=== PATIENT | female | born 1940 | race Caucasian/White ===

== ENCOUNTER 2024-02-28 14:00 | Emergency (ER) | payer MEDICARE, SELFPAY ==
[2024-02-28 14:02] VITALS: BP 122/60
[2024-02-28 14:04] VITALS: BP 122/60
[2024-02-28 16:28] VITALS: BP 129/67
[2024-02-28 17:00] VITALS: BP 141/78
--- NOTE | 2024-02-28 18:44 | ED.GENMED ---
History of Present Illness
General
Chief Complaint: Fall
Source: patient and family (Daughter)
Exam Limitations: none
Time Seen by Provider: 02/28/24 15:09
Nursing documentation reviewed up to this point in time: agreed with
Travel History
Have you had any contact with someone who has COVID-19?: No
Do you have any symptoms of coronavirus? Fever > 100 degrees, chills, cough, shortness of breath, sore throat, loss of taste or smell, muscle aches, or headache?: No
History of Present Illness
History of Present Illness:
83-year-old female with a past medical history of dementia, asthma, hyperlipidemia who presents to the emergency room from her residential at [facility] to come in by her daughter for evaluation after a minor fall. Patient apparently lives in
apartment at [facility] with assisted living. She is able to ambulate with a walker. She says that she was sitting down in her living room and slid onto her bottom out of her recliner. She thinks that she might of hit the right side of her
head�according to the staff at [facility] this was witnessed and she did indeed hit her head. There was no loss of consciousness. She was sent to the emergency room for assessment. She initially was complaining of sacral pain in triage she
denies this to me. She denies any headache. Denies neck pain. Denies back pain. Denies chest or abdominal pain. Denies any pain in her extremities. She is not on blood thinners.
Review of Systems
Review of Systems
All Other Systems: ROS reviewed and negative except as documented in HPI and ROS
Respiratory: Denies trouble breathing
Cardiac: Denies chest pain
ABD/GI: Denies abdominal pain, nausea or vomiting
: Denies flank pain
Musculoskeletal: Denies neck pain or back pain
Neurological: Denies dizzy or headache
Phy Exam
Physical Exam
Physical Exam:
General: Awake, alert; no acute distress
Head: Normocephalic, atraumatic
Eyes: Conjunctiva normal, EOMI
Throat: Airway intact, handling secretions
Neck: Trachea midline, no cervical spine tenderness
Back: No signs of trauma to the back or flank, no tenderness in the thoracic or lumbar spine; no tenderness over the coccyx, no hematoma in the back or flank or on the buttock; no tenderness in the posterior ribs
Lungs: Clear to auscultation bilaterally, no wheezing, rales, rhonchi
Heart: Regular rate and rhythm, no murmurs, gallops, or rubs; no sternal or anterior chest wall tenderness
Abd: Soft, non distended, nontender
Neuro: Cranial nerves grossly intact, speech fluid, no gross motor or sensory deficit
Skin: no rash, no lacerations or abrasions, no bruising/ecchymosis
Extremities: Atraumatic, moves upper and lower extremities through active range of motion without discomfort including full range of motion in the hips bilaterally; good pulses in all extremities
Scores
Heart Failure Risk
Heart Failure Risk Score: Not Applicable
Heart Score for Chest Pain Patients
STEMI patient?: Not applicable
Withdrawal Assessment of Alcohol
Withdrawal Assessment Completed?: Not applicable
Course
Orders/Labs/Results
Orders:
Orders
02/28/24 15:13
CT Head W/o Iv Contrast Urgent
Comment:
Reason For Exam: fall with head strike
CR Pelvis Comp Min 3 Views Urgent
Comment:
Reason For Exam: fall onto bottom, sacral pain
CR Sacrum/coccyx Min 2 View Urgent
Comment:
Reason For Exam: fall onto buttock, sacral pain
02/28/24 17:21
Electrocardiogram (*1) Urgent
Reason for Study: Chest Pain
EKG- Treatment ONCE
02/28/24 14:03
02/28/24 14:03
Vital Signs
Initial and Last Documented VS:
Initial Vital Signs
BP
122/60
02/28/24 14:02
Last Documented Vital Signs
Temp Pulse Resp BP Pulse Ox
36.5 C 75 20 141/78 96
02/28/24 14:04 02/28/24 14:04 02/28/24 14:04 02/28/24 17:00 02/28/24 17:15
MDM/Problems Addressed
Differential Diagnosis Includes:
Pelvic fracture, sacral fracture
MDM/Problems Addressed:
83-year-old female with history as above presents for evaluation after fall onto her bottom with minor head trauma. She denies any complaints. Vital signs are normal. Sent for a CT head which was negative. Sent for x-ray of pelvis and sacrum
which were negative. She was observed in the emergency room with no issues. Will discharge back to residential. Family comfortable with this. Spoke about return precautions all questions answered.
Chronic conditions affecting care:
Dementia
*Radiology
Radiology exam reviewed: preliminary read by ED provider and radiology read reviewed
*Pulse Oximetry
Patient hypoxic: no
*EKG
Interpreted by ED Provider?: Yes
Heart Rate: 79
Rate: normal
Rhythm: sinus
[place]: left axis deviation
Interval: normal interval
QRS Pattern: left bundle branch block
Ischemia: no ischemia
*Critical Care Note
Total Time (30-74mins, 75-104mins- exclusive of procedures): Not Applicable
Data Reviewed
Source: patient, records, family and ambulance crew
ED Attending Note
-
Portions of this chart may have been created with voice recognition software.� Occasional wrong word or��sound alike� substitutions may have occurred due to the inherent limitations of voice recognition software.
Discharge Plan
Departure
Patient Disposition: Home (Routine Discharge)
Date of Disposition: 02/28/24
Time of Disposition: 17:50
Patient with high blood pressure during this ER visit?: No
Discharge Problem:
Coccyx contusion
Instructions: Preventing falls in adults
Referrals:
Raven Calvillo CRNP [Family Provider] - Call in 1-3 days for appt
Activity Restrictions/Additional Instructions:
You can take Tylenol 650 mg every 6 hours as needed for pain/soreness over the next few days.
Thank you for visiting the Emergency Department at [facility].
1. Please schedule a follow up appointment as directed. Call first thing tomorrow morning to make an appointment.
2. If indicated, please take your medications as instructed and indicated on discharge paperwork.
3. If any of your symptoms do not improve, or persist, or become more severe within 6-12 hours, please return to the emergency department for further care.
4. Please return to the emergency department if you develop a headache, neck pain/stiffness, fever greater than 100.4F, chest pain, shortness of breath, persistent nausea, vomiting, slurred speech, difficulty walking, numbness/tingling, weakness,
signs of infection or any other symptoms that are worrisome to you.
Please call [phone] if you have any questions.
Interventions
Interventions:
*Risk Screen - Suicide Last Done: 02/28/24 14:04
*General Assessment Last Done: 02/28/24 14:04
*Neglect/Abuse Screening Last Done: 02/28/24 14:04
*ED COVID-19 Vaccine History Last Done: 02/28/24 14:04
*Nursing Disposition Last Done: 02/28/24 19:23
ED-Musculoskeletal Assessment Last Done: 02/28/24 14:17
ED- Neurological Assessment Last Done: 02/28/24 14:13
ED-Skin Assessment Last Done: 02/28/24 14:13
Discharge Date and Time
Discharge Date/Time: 02/28/24 19:24
Print Language: BELARUSIAN
== END 2024-02-28 19:24 | disposition home or self-care (01) ==
LOC: EMR 14:00
PROVIDERS: EMERGENCY PHYSICIAN Emergency Medicine; FAMILY PHYSICIAN Nurse Practitioner Family
DX: S30.0XXA Contusion of lower back and pelvis, initial encounter (principal); W19.XXXA Unspecified fall, initial encounter; F03.90 Unspecified dementia, unspecified severity, without behavioral disturbance, psychotic disturbance, mood disturbance, and anxiety
CPT/HCPCS: 99285; 70450; 72190; 72220; 93005

== ENCOUNTER 2024-08-05 08:21 | Inpatient (IN) | payer MEDICARE, OTHER, SELFPAY ==
[2024-08-04] VITALS (7 sets, daily range): BP systolic 115–179; BP diastolic 48–68
--- NOTE | 2024-08-04 16:06 | ED.GENMED ---
History of Present Illness
General
Chief Complaint: Skin Surface Trauma
Source: patient, ambulance crew, detention and detention records
Exam Limitations: dementia
Time Seen by Provider: 08/04/24 15:03
Nursing documentation reviewed up to this point in time: agreed with
History of Present Illness
History of Present Illness:
83-year-old female with a past medical history of dementia, Parkinson's, hyperlipidemia, hypertension who presents to the emergency room from [facility] for evaluation after witnessed fall. Patient is somewhat limited as a historian
due to her dementia and Parkinson's. She is able to tell me that she fell down but cannot tell me exactly what happened. I spoke to the detention staff directly�they report that patient was trying to transition from wheelchair and fell to the
ground. Struck her head and sustained laceration to the nose. No loss of consciousness. She was sent to the emergency room for evaluation given her head trauma. She does have dementia at baseline and confused speech at baseline according to
staff there. She did receive some Ativan earlier for agitation. When I asked the patient if she has any complaints she says 'no.' She denies headache or neck pain, back pain, chest pain, abdominal pain, pain in her extremities. Review of her
medication shows no blood thinners.
Review of Systems
Review of Systems
Unable to obtain full review of systems at this time due to: dementia
All Other Systems: Not applicable
Phy Exam
Physical Exam
Physical Exam:
General: Awake, alert, oriented x 2
Head: Normocephalic, patient has small approximately 3 cm laceration along the bridge of the nose on the left side
Eyes: Conjunctiva normal, EOMI, pupils equal round reactive to light bilaterally
Throat: Airway intact
Neck: Trachea midline, no cervical spine tenderness
Lungs: Clear to auscultation bilaterally, no wheezing, rales, rhonchi
Heart: Regular rate and rhythm, no murmurs, gallops, or rubs appreciated; no chest wall to
Abd: Soft, non distended, nontender
Back: No signs of trauma the back or flank and no tenderness in thoracic or lumbar spine
Neuro: Follow commands and responds appropriately to questions but disoriented which is apparently her baseline
Skin: Laceration to the nasal bridge as above but no other signs of trauma
Extremities: Atraumatic, no reproducible tenderness, allows for full passive range of motion all extremities without apparent pain
Scores
Heart Failure Risk
Heart Failure Risk Score: Not Applicable
Heart Score for Chest Pain Patients
STEMI patient?: Not applicable
Withdrawal Assessment of Alcohol
Withdrawal Assessment Completed?: Not applicable
Course
Orders/Labs/Results
Orders:
Orders
08/04/24 15:05
CT Cervical Spine W/o Iv Contr Urgent
Comment:
Reason For Exam: fall with frontal headstrike
CT Head W/o Iv Contrast Urgent
Comment:
Reason For Exam: fall with frontal headstrike
08/04/24 15:35
Tetanus/Diphth/Acelpertussis [Adacel] 0.5 ml IM .ONCE ONE
08/04/24 19:09
Case Management Consult ONCE
Case Management Consult: [facility] Placement
Pt Eval And Treat Urgent
Activity Level: Ambulate
Vital Signs
Initial and Last Documented VS:
Initial Vital Signs
Temp Pulse Resp BP
37.9 C 78 18 115/48
08/04/24 14:32 08/04/24 14:32 08/04/24 14:32 08/04/24 14:32
Last Documented Vital Signs
Temp Pulse Resp BP Pulse Ox
37.9 C 62 17 179/68 92
08/04/24 14:32 08/04/24 18:30 08/04/24 18:30 08/04/24 18:00 08/04/24 18:30
Procedures
Laceration Closure
Nose:
Status of Wound: clean
Size of Wound in cm: 3
Description of Wound Edges: ragged
Preparation: cleaned with saline
Revision/Debridement: minor revision
Type of Closure: single layer closure
Skin Closure Material: other (6-0 vicryl)
Number of sutures: 3
MDM/Problems Addressed
Differential Diagnosis Includes:
Fall with laceration
MDM/Problems Addressed:
83-year-old female presents after witnessed fall with head strike. No other apparent injuries. She is not on blood thinners. She has a small laceration as above. She was sent for a CT head and cervical spine which were negative for any acute
pathology. Laceration repaired as documented procedure note.
Discussed with detention staff as well as patient's daughter who is now at the bedside. Patient currently is in assisted living at [facility] and over the past year her dementia has been worsening. The staff at detention feels that she
needs a memory care unit due to her worsening behavioral issues. Daughter has tried to place her mother in but has thus far been unsuccessful. Case management consulted to aid with placement in memory care. I did discuss potentially initiating
palliative care with patient's daughter and she is very eager to pursue this. Discussed case with hospitalist.
Chronic conditions affecting care:
Dementia, Parkinson's
Acute Exacerbation and/or Progression of Chronic Illness: HTN
*Radiology
Radiology exam reviewed: radiology read reviewed
*Pulse Oximetry
Patient hypoxic: no
*Critical Care Note
Total Time (30-74mins, 75-104mins- exclusive of procedures): Not Applicable
Data Reviewed
Source: patient, ambulance crew, detention and detention records
Patient Management
Social determinants of health affecting care: Living situation
Discussion with other providers: Hospitalist (Discussed with hospitalist), Scarfer (Discussed with palliative care) and long term staff (Discussed directly with detention staff)
Escalation/DeEscalation of care consider admission/obs:
Admission indicated for placement
ED Attending Note
-
Portions of this chart may have been created with voice recognition software.� Occasional wrong word or��sound alike� substitutions may have occurred due to the inherent limitations of voice recognition software.
Discharge Plan
Departure
Patient Disposition: Admit
Date of Disposition: 08/04/24
Time of Disposition: 18:39
Admit to doctor: Efrain
Presentation/result/management discussed w/ accepting MD/DO: Hospitalist
Patient with high blood pressure during this ER visit?: No
Discharge Problem:
Dementia, Laceration of nose
Instructions: Laceration Repair With Stitches (DC)
Referrals:
Raven Calvillo CRNP [Family Provider] - Follow up in 2-3 days
Activity Restrictions/Additional Instructions:
Patient had a laceration repair with stitches; these stitches are absorbable and do not need removal.
Interventions
Interventions:
*Risk Screen - Suicide Last Done: 08/04/24 14:32
*General Assessment Last Done: 08/04/24 14:32
*Neglect/Abuse Screening Last Done: 08/04/24 14:32
*ED COVID-19 Vaccine History Last Done: 08/04/24 14:32
ED-Skin Assessment Last Done: 08/04/24 15:03
Discharge Date and Time
Print Language: TELUGU
[2024-08-04] MEDS: ADACEL 0.5 ML IM (16:07)
--- NOTE | 2024-08-04 19:58 | HPS.HSE ---
Family Physician
-
Family Physician: Raven Calvillo
Chief Complaint
-
Witnessed fall
History of Present Illness
HPI
83F Assisted living [facility] HX dementia, Parkinson's, hyperlipidemia, hypertension for evaluation after witnessed fall.
- He recalled the fall , could not recall the details of fall.
- [place] Staff, while transition from and fell to the ground
- Struck her head and sustained laceration to the nose.
- No loss of consciousness
- She did receive some Ativan earlier for agitation.
ROS:
denies headache or neck pain, back pain, chest pain, abdominal pain, pain in her extremities. Review of her medication shows no blood thinners.
Medical History
Past Medical History
Past Medical History: Reports HTN, Hypercholesterolemia, Psychiatric (Dementia ) and Other (Parkinson dz )
Past Surgical History: Reports Other
Social History
Unable to obtain full social history at this time due to: Dementia
Family History
Family History: Not pertinent
Allergies / Home Medications
Allergies reflects when Allergies were last updated in [facility].
Home Medications with original date entered in [facility]
Allergy/Medication List:
Allergies
Allergy/AdvReac Type Severity Reaction Status Date / Time
amoxicillin Allergy Unknown Verified 02/28/24 14:02
ciprofloxacin Allergy Unknown Verified 02/28/24 14:02
doxycycline Allergy Unknown Verified 02/28/24 14:02
ibuprofen Allergy Unknown Verified 02/28/24 14:02
Brdkooy-RIW-RqZ Reductase Allergy Unknown Verified 02/28/24 14:02
Inhibitor
Sulfa (Sulfonamide Allergy Unknown Verified 02/28/24 14:02
Antibiotics)
Home Medications
acetaminophen 500 mg tablet 1,000 mg PO TID 08/04/24
albuterol sulfate 2.5 mg/3 mL (0.083 %) solution for nebulization 2.5 mg inhalation R QID 08/04/24
albuterol sulfate 90 mcg/actuation aerosol inhaler 1 puff inhalation R BID 08/04/24
brexpiprazole 2 mg tablet (Rexulti) 4 mg PO DAILY 08/04/24
cholecalciferol (vitamin D3) 25 mcg (1,000 unit) tablet 25 mcg PO DAILY 08/04/24
donepezil 5 mg tablet 10 mg PO HS 08/04/24
escitalopram oxalate 10 mg tablet 20 mg PO DAILY 08/04/24
ezetimibe 10 mg tablet 10 mg PO DAILY 08/04/24
gabapentin 300 mg capsule 300 mg PO TID 08/04/24
dctehxiq-vgx-cytixxzug-C-hyaluronic 500 mg-300 mg-400 mg-10 mg tablet 1 tab PO DAILY 08/04/24
lorazepam 0.5 mg tablet 0.5 mg PO Q8H 08/04/24
methocarbamol 500 mg tablet 500 mg PO TID 08/04/24
omeprazole 20 mg tablet,delayed release 20 mg PO DAILY 08/04/24
oxycodone-acetaminophen 5 mg-325 mg tablet (Percocet) 1 tab PO Q8HPRN PRN moderate pain 08/04/24
quetiapine 25 mg tablet 12.5 mg PO HS 08/04/24
sennosides 8.6 mg-docusate sodium 50 mg tablet (Stimulant Laxative Plus) 2 tab PO HS 08/04/24
therapeutic multivitamin 1 tab PO DAILY 08/04/24
trazodone 50 mg tablet 50 mg PO HS 08/04/24
Review of Systems
-
Constitutional: Reports No Symptoms
EENT: Reports No Symptoms
Respiratory: Reports No Symptoms
Cardiac: Reports No Symptoms
Abdomen/GI: Reports No Symptoms
: Reports No Symptoms
Musculoskeletal: Reports See HPI
Skin: Reports No Symptoms
Neurological: Reports No Symptoms
Endocrine: Reports No Symptoms
Hematologic/Lymphatic: Reports No Symptoms
Psych: Reports See HPI
Physical Exam
Vital Signs
Vital Signs
Temp Pulse Resp BP Pulse Ox
100.3 F 62 17 179/68 92
08/04/24 14:32 08/04/24 18:30 08/04/24 18:30 08/04/24 18:00 08/04/24 18:30
Physical Exam
General: No Apparent Distress
HEENT: NormoCephalic, Moist mucous membranes and Atraumatic
Respiratory: Clear
Cardiac: S1/S2 and Regular Rhythm; No Murmur or Rub
GI: Soft, Non Tender, Non Distended and Normal Bowel Sounds; No Organomegaly
Rectal: Deferred by Provider
Musculoskeletal: No Clubbing, No Cyanosis and No Edema
Skin: No Rash
Neuro: Nonfocal/grossly intact
Data Reviewed
-
Diagnostic Radiology: Report Reviewed by me
CT Scan: Report Reviewed by me
Impression/Plan
-
Data
pending admission labs
HCT: No acute intracranial abnormality note
CX spine:
No evidence of acute fracture the cervical spine.
Multilevel degenerative disc disease as described above.
No prior hospitalist admission:
ASSESSMENT & PLAN
Witnessed Fall at assisted living [place] complicated with nose laceration
Per assisted living , patient is having progressive agitation and behavioral issues
- receiving Lorazepam q8h at [place]
- So far , pending memory care unit , not yet accepted per daughter
- check UA
- PT/OT
- CRM consult
- Psych consult for progressive behavioral issue and chemical control
Low grade fever
- check UA
- check Covid Ag
Known conditions
HX dementia
Parkinson's,
hyperlipidemia
hypertension
- cont [employer] meds
DVT Px: SQH
Code: DNR per daughter
Obs MS
[2024-08-04 20:30] LABS: Hematocrit 31.1 % (37.0-47.0); Hemoglobin 10.5 g/dL (12.0-16.0); Mean Corp Hgb Conc. 33.8 g/dL (33.0-37.0); Mean Corpuscular Hgb 28.8 pg (27.0-31.0); Mean Corpuscular Volume 85.4 fL (81.0-99.0); Mean Platelet Volume 9.6 fL (7.4-10.4); Platelet Count 223 10^3/uL (130-400); Red Blood Cell Count 3.64 10^6/uL (4.20-5.40); Red Cell Dist. Width 13.9 % (11.5-14.5); White Blood Cell Count 7.1 10^3/uL (4.8-10.8)
[2024-08-04 20:42] LABS: Blood Urea Nitrogen 23 mg/dl (7-17); Calcium 9.1 mg/dl (8.4-10.2); Carbon Dioxide 25 mmol/L (22-30); Chloride 105 mmol/L (98-107); Glucose 106 mg/dl (70-99); Potassium 4.2 mmol/L (3.5-5.1); Sodium 142 mmol/L (135-145); eGFR > 60.00
[2024-08-04 22:35] LABS: Urine Albumin Trace (Neg - Trace); Urine Bilirubin Negative (Negative); Urine Character Slightly Cloudy (Clear); Urine Color Yellow; Urine Glucose Negative (Negative); Urine Ketone Negative (Negative); Urine Leukocyte Negative (Negative); Urine Nitrite Positive (Negative); Urine Occult Blood Trace (Negative); Urine Specific Gravity 1.025 (<1.030); Urine Urobilinogen Negative (Neg - 1+)
[2024-08-04 22:44] LABS: Urine Bacteria Moderate (Negative); Urine Red Blood Cell 0-2 /HPF (0-2)
[2024-08-05] VITALS (19 sets, daily range): BP systolic 95–160; BP diastolic 39–82; PULSE 78; O2SAT 99
[2024-08-05] MEDS: NEURONTIN PO (00:56)
[2024-08-05] MEDS: SEROQUEL PO (00:56)
[2024-08-05] MEDS: ARICEPT PO (00:56)
[2024-08-05] MEDS: SENOKOT-S PO (00:56)
[2024-08-05] MEDS: DESYREL PO (00:56)
[2024-08-05] MEDS: ATIVAN PO (01:04)
[2024-08-05 05:59] LABS: Hematocrit 35.1 % (37.0-47.0); Hemoglobin 11.6 g/dL (12.0-16.0); Mean Corpuscular Hgb 29.7 pg (27.0-31.0); Mean Platelet Volume 9.8 fL (7.4-10.4); Platelet Count 213 10^3/uL (130-400); Red Cell Dist. Width 13.7 % (11.5-14.5); White Blood Cell Count 7.1 10^3/uL (4.8-10.8)
[2024-08-05 06:17] LABS: COVID-19 Antigen Negative (Negative)
[2024-08-05 06:24] LABS: Blood Urea Nitrogen 19 mg/dl (7-17); Calcium 9.4 mg/dl (8.4-10.2); Carbon Dioxide 26 mmol/L (22-30); Chloride 106 mmol/L (98-107); Glucose 98 mg/dl (70-99); Potassium 4.4 mmol/L (3.5-5.1); Sodium 142 mmol/L (135-145); eGFR > 60.00
[2024-08-05] MEDS: TYLENOL 650 MG PO ×2 (07:01→14:04)
[2024-08-05] MEDS: ATIVAN 0.5 MG PO ×2 (07:01→15:03)
[2024-08-05] MEDS: HEPARIN 5000 UNITS SC ×2 (07:15→19:59)
[2024-08-05] MEDS: PROTONIX 40 MG PO (07:15)
[2024-08-05] MEDS: NEURONTIN 300 MG PO ×3 (07:15→20:59)
[2024-08-05] MEDS: SEROQUEL 12.5 MG PO ×2 (07:16→20:59)
--- NOTE | 2024-08-05 08:19 | W.PN.HOSP.TC ---
Today's Communication/Plan
-
see PN
Assessment / Plan
Assessment / Plan
83yo F with PMHx of Parkinsons, signbificant demenita (poor mentation on the baseline, HLD, COPD, chronic pain brought from [facility] after she sustained the fall while staff was transeffing her to . Found nasal laceration, CT head
and cervical spine without fractures. FOund UTI and became hypoxic over her first 24h of hospitalization
A/P:
#Fall without LOC with chronic ambulatory dysfunction
CT head and cervical spine w/o acute findings
PT/OT
Fall precautions
#UTI
Ceftriaxone and follow Ucx
No CANDICE - no concern for complicated infection at this time
#Acute hypoxic respiratory insufficiencty
#COPD, unlikely exacerbation as no wheezing on exam
#b/l LE swelling
check chest XR, proBNP
With mild hypotension - cannot give Lasix without getting addityional info from abovementioned tests
cont bronchodilators
COVID-19 neg
#Severe Dementia, unspecified
#Parkinsons disease
#Chronic back pain
#HLD
cont home meds
#Mild anemia
f/u with PCP upon d/c
DVT ppx hep
DNR/DNI as per papaerwork
I have spent at least 58min reviewing chart, test results and direct patient care
Anticipated Discharge: > 48 hours
Subjective/Interval History
-
Date of Service: August 05, 2024
Objective Data
-
Labs:
Laboratory Results
08/04/24 08/05/24
20:20 05:43
WBC 7.1 7.1
Hgb 10.5 L 11.6 L
Hct 31.1 L 35.1 L
Plt Count 223 213
Sodium 142 142
Potassium 4.2 4.4
Chloride 105 106
Carbon Dioxide 25 26
BUN 23 H 19 H
Creatinine 0.8 0.8
Glucose 106 H 98
Calcium 9.1 9.4
Vital Signs:
Vital Signs
Temp Pulse Resp BP Pulse Ox
98.1 F 85 13 118/82 95
08/05/24 07:25 08/05/24 07:00 08/05/24 07:00 08/05/24 07:00 08/05/24 07:25
Review of Systems
-
Unable to obtain full review of systems at this time due to: Dementia
History Source: Patient
Physical Exam
-
General: Comfortable
HEENT: Other (nasal laceration)
Respiratory: Negative Wheezes or Crackles
Cardiac: Regular Rhythm
GI: Soft, Nontender and Nondistended
Musculoskeletal: No Clubbing, No Cyanosis, Edema, Right Lower Extrem and Edema, Left Lower Extrem
Skin: Warm
Neuro: Awake, Alert and Oriented (not to time)
Psych: Calm
[2024-08-05] MEDS: LEXAPRO 20 MG PO (09:04)
[2024-08-05] MEDS: ZETIA 10 MG PO (09:04)
[2024-08-05] MEDS: VENTOLIN NEBULES INH ×3 (09:30→12:21)
[2024-08-05] MEDS: ROCEPHIN 1000 MG IV (10:12)
[2024-08-05] MEDS: STERILE WATER FOR INJECTION 10 ML IV (10:12)
--- NOTE | 2024-08-05 10:24 | W.CON.PAL ---
Consultation
-
Date/Time Consultation Requested: 08/04 9pm
Date/Time Consultation Performed: 08/05 11am
Requesting Provider: Bill Becerra
Performing Provider: Viviana Radha FERNANDO
Reason for Consult: Goals of Care Discussion
Primary Diagnosis: dementia
Consult Requested By: Patient's Family and Patient's Physician
Reason for Admission
Illness Course/HPI
Viviana is an 83 year old F with PMH of Parkinson's disease, dementia, HTN, HLD who presented to the ED from [facility] after a fall. +head strike with nose laceration.
In ED received sutures to laceration. CT head negative. +UTI and started on antibiotics. Per chart review, patient with progressive worsening of agitation recently at facility. Had been receiving Ativan Q8 at [facility]. Family working on trying to get her
into memory care with no luck.
Admitted for antibiotics and possible memory care placement.
Pain & Symptom Assessment
Patient Symptoms
Patient Symptoms: Agitation
Objective Data
-
Objective Data:
Vital Signs
Temp Pulse Resp BP Pulse Ox
98.1 F 85 13 118/82 95
08/05/24 07:25 08/05/24 07:00 08/05/24 07:00 08/05/24 07:00 08/05/24 07:25
Laboratory Results
08/05/24 05:43
08/05/24 05:43
Urine Color Yellow 08/04/24 22:29
Urine Clarity Slightly cloudy (Clear) 08/04/24 22:29
Urine pH 5.0 (5.0-9.0) 08/04/24 22:29
Ur Specific [place] 1.025 (<1.030) 08/04/24 22:29
Urine Ketones Negative (Negative) 08/04/24 22:29
Urine Bilirubin Negative (Negative) 08/04/24 22:29
Palliative Performance Scale
Palliative Performance Scale:
PPS Level Ambulation Activity & Evidence of Disease Self Care Intake Conscious Level
100% Full Normal Activity & Work; Full Intake Full
No Evidence of Disease
90% Full Normal Activity & Work; Full Normal Full
Some Evidence of Disease
80% Full Normal Activity with Effort Full Normal or Full
Some Evidence of Disease Reduced
70% Reduced Unable Normal Job/Work Full Normal or Full
Significant Disease Reduced
60% Reduced Unable Hobby/Housework Occasional Normal or Full or Confusion
Significant Disease Assistance Reduced
50% Mainly Sit/Lie Unable to do Any Work Considerable Normal or Full or Confusion
Extensive Disease Assistance Req'd Reduced
40% Mainly in Bed Unable to do Most Activity Mainly Assistance Normal or Full or Drowsy;
Extensive Disease Reduced +/- Confusion
30% Totally Bed Unable to do Any Activity Total Care Normal or Full or Drowsy;
Bound Extensive Disease Reduced +/- Confusion
20% Totally Bed Bound Unable to do Any Activity Total Care Minimal to Full or Drowsy;
Extensive Disease Sips +/- Confusion
10% Totally Bed Bound Unable to do Any Activity Total Care Mouth Care Drowsy or Coma;
Extensive Disease Only +/- Confusion
0%
PPS Score Level:
Palliative Performance Score Response
Palliative Performance Score Response: 50%
Physical Exam
-
General: Well Developed and Appears Chronically Ill
HEENT: Normocephalic and Other (nose laceration )
Respiratory: Clear to Auscultation
Cardiac: Regular Rhythm
Peripheral Vascular: No Edema
GI: Soft and Normal Bowel Sounds
Skin: Warm
Neuro: Awake and Alert
Psych: Confused
Assessment / Plan
-
Assessment/Plan:
83 year old F with dementia (per daughter, Lewy Body with Parkinsonian features) admitted from [facility] s/p fall with head strike and nose laceration. Worsening agitation in the last few weeks. Possible UTI.
Encounter for Palliative Care
- conversation with patient limited by dementia. Able to tell me shes in the hospital but unaware of what happened with her fall. No family present.
- spoke with patients daughter Sybil via phone. Reports that patient had a rapid decline since around August 2023, summer was walking a 5K and now is wheelchair bound with worsening behaviors. Was initially home, started to have
frequent UTIs and hospitalizations. Went to rehab after a hospital stay and then transitioned to [facility] Nov 2022. Since then has had falls, worsening functional status and worsening mentation. Daughter not happy with the [facility], feels they
dont manage her correctly. Was told its 'on her' to move her to a nursing facility and offered her no assistance with what to do. Sybil currently working with elder pot maker on a spend down and then will qualify for medicaid. She would prefer her
mother not go back to from the hospital. Discussed psych consult and hopefully medication adjustments to get a better handle on her behaviors/agitation so possibly might not need to leave [facility] if they can be better controlled.
- await psych recommendations. Would avoid ativan given her age and dementia. ?DC adriano.
- if discharged back to [facility], can follow with palliative care as an outpatient for further management. Daughter prefers SNF to LTC placement if can be accepted somewhere with working on a spend down. CM sent referrals.
Care Reviewed
Data Reviewed
Medical Tests: I reviewed
Reviewed with: Family
[2024-08-05 10:40] LABS: Lactic Acid 0.9 mmol/L (0.7-2.0)
[2024-08-05 10:50] LABS: NT-proBNP 143 pg/ml
[2024-08-05 11:12] LABS: TSH Reflex To Free T4 0.93 uIU/ml (0.47-4.68)
--- NOTE | 2024-08-05 11:31 | CM ---
Addendum entered by Muriel Samson RN 08/05/24 18:06:
Patient added [facility] to referral.
Addendum entered by Muriel Samson RN 08/05/24 14:25:
[facility] has not accepted.
CM spoke with patient's daughter who requested updated on discharge planning options. Patient daughter was very anxious and stated that he feels very confused about the discharge planning process. Patient daughter spoke with [facility] and
she felt even more confused than before and became very tearful.
CM provided emotional support. CM provided updates with [facility] interest in patient. CM sent updated psych notes to [facility].
CM will continue to follow
Original Note:
CM spoke with daughter at length regarding her placement concerns. Daughter stated that patient has been living at [facility] for about 9 months. Daughter reports that recently patient has been falling and 'yelling'. Daughter further reports that
she has been told multiple patients are complaining about patient's behavior that has only included yelling. Daughter attempted to get patient into [facility] LTC with the assistance of [facility]. She was told that no bed is available.
Daughter stated that patient has been evaluated at [facility] neurology and has been diagnosed with dementia. Daughter does not think [facility] is able to provide appropriate care for patient and she also feels they have overmedicated patient. She is
adamant that patient does not returns.
CM discussed STR to LTC options. Patient's daughter understands that patient will need LTC and is wiling to participate in financial applications as needed. She is also working with an elder law deputy commonwealth's attorney to assist with planning.
Patient's daughter reviewed Medicare.gov list. CM sent referrals to the following facilities:
[facility]
--- NOTE | 2024-08-05 11:56 | WOUNDNOTE ---
BRIDGE OF NOSE
--- NOTE | 2024-08-05 11:56 | WOUNDNOTE ---
GLUTEAL CLEFT VERTICAL
--- NOTE | 2024-08-05 12:00 | PTCARENOTE ---
Received pt this AM calling out for help. Pt oriented to self only. Confused and anxious, states she is scared and her 'butt hurts'. Pt pleasant and cooperative w/ staff and care. When left along pt calls out continuously for help. 650mg PO Tylenol
and 0.5 PO Ativan given this AM w/ good result. Pt able to eat some lunch. Daughter at bedside. Plan of care discussed. Incontinent of urine, Purewick in place.
--- NOTE | 2024-08-05 12:00 | WOUNDNOTE ---
[facility] RN note: Patient admitted with dementia, laceration of nose.
See H&P for complete history.
PMH: Alzheimer's, asthma, depression, bipolar disorder, schizophrenia.
Wound Location and type/assessment: Patient admitted with: unstageable PI in gluteal cleft/sacrum, base covered in blackwood/brown eschar. Periwound blanchable red. Heels are blanchable red. Bridge of nose remains closed.
Appetite: Good.
Pressure redistribution devices in place: Asked nurse Yaquelin to have a [facility] air bed for patient when has Rm.
Plan:For sacral ulcer, clean with saline, skin prep periwound, Santyl to eschar, moistened 2x2 gauze and silicone foam change daily. Heels, skin prep and adhesive foams applied, pillow under calves.
Will confirm orders with hospitalist and updated nurse.
Updated care plan and will follow as needed.
Note to case management of equipment requested for discharge: nursing for wound care.
Recommend follow up at wound care center upon discharge.
--- NOTE | 2024-08-05 12:18 | CS.PSYCHR ---
Consult Summary - Psychiatry
-
Pt is an 83 yo female brought in from assisted living facility after falling, hitting her head/injuring her nose. Psychiatry asked to see for episodes of screaming. Pt has hx of dementia, reportedly dx'd with Lewy Body dz by [facility]. Dtr
who is POA at bedside, providing history; pt unable to give information. Pt resting calmly, sleepy after receiving Ativan. Pt occasionally calls for dtr, stated she has to use the bathroom. Dtr reports pt has not been able to take part in
activities/services at the assisted living facility, has worsened from using a walker to wheelchair dependent. Dtr reports only recent medication change was stopping Trazodone.
Psych Hx: denied other than above
PMH: dementia, Parkinson's, hyperlipidemia, hypertension for evaluation after witnessed fall.
Psych meds: Lexapro 20 mg QD, Aricept 10 mg HS, Rexulti 4 mg QD, Seroquel 12.5 mg HS, Ativan 0.5 mg Q 8 hr
MSE: resting on stretcher, no agitation at present, mildly sedated, calm. Occasionally calls out to dtr. No overt psychosis. No restlessness or EPS
Imp: Dementia with agitation, reportedly dx'd with Lewy Body dz
Rec: would continue current psychotropic med regimen- agree with trying increasing Seroquel (lower potency antipsychotic is preferable)-ordered AM/HS
will follow
[2024-08-05] MEDS: VENTOLIN NEBULES 2.5 MG INH ×3 (12:22→19:36)
--- NOTE | 2024-08-05 16:00 | PTCARENOTE ---
Pt w/ increased agitation. c/o butt pain, trying to get up. Pt repositioned for comfort. Pt asked to take a BM, placed on bed weinstein, smear only resulted. Scheduled 0.5mg PO Ativan and PRN Tylenol given.
[2024-08-05] MEDS: DESYREL 50 MG PO (21:01)
[2024-08-05] MEDS: ARICEPT 10 MG PO (21:01)
[2024-08-05] MEDS: SENOKOT-S 2 TABLET PO (21:01)
[2024-08-06] MEDS: ATIVAN PO (01:03)
[2024-08-06 03:07] VITALS: BP 138/74
--- NOTE | 2024-08-06 05:54 | DOWNTIME ---
There was a [employer] Development Manager Downtime on 08/06/2024 from 0100 to 08/06/2024 at 0355. Downtime documentation of patient's care, including medication administrations, has been reconciled in the electronic record per guidelines. Refer to the
patient's paper chart under the miscellaneous tab to see printed paper medication records and downtime forms.
[2024-08-06] MEDS: VENTOLIN NEBULES 2.5 MG INH ×3 (07:20→19:18)
[2024-08-06 07:33] VITALS: BP 135/68
[2024-08-06] MEDS: ROCEPHIN 1000 MG IV (07:52)
[2024-08-06] MEDS: NEURONTIN 300 MG PO ×3 (07:53→20:43)
[2024-08-06] MEDS: SEROQUEL 12.5 MG PO ×2 (07:53→20:43)
[2024-08-06] MEDS: ZETIA 10 MG PO (07:53)
[2024-08-06] MEDS: STERILE WATER FOR INJECTION 10 ML IV (07:53)
[2024-08-06] MEDS: HEPARIN 5000 UNITS SC ×2 (07:55→19:34)
[2024-08-06] MEDS: PROTONIX 40 MG PO (07:55)
[2024-08-06] MEDS: LEXAPRO 20 MG PO (07:55)
[2024-08-06] MEDS: ATIVAN 0.5 MG PO ×2 (07:55→19:33)
[2024-08-06] MEDS: SANTYL OINTMENT 1 APPLIC TOPICAL (07:57)
[2024-08-06 08:17] LABS: % Basophils 0.6 % (0-2); % Eosinophils 3.4 % (0-6); % Immature Granulocytes 0.3 % (0-0.5); % Lymphocytes 30.8 % (20.5-51.1); % Monocytes 6.7 % (1.7-9.3); % Neutrophils 58.2 % (42.2-75.2); Absolute Eosinophils 0.2 10^3/uL (0-0.7); Absolute Lymphocytes 2.1 10^3/uL (1.2-3.4); Absolute Monocytes 0.5 10^3/uL (0.1-0.6); Hematocrit 34.7 % (37.0-47.0); Hemoglobin 11.4 g/dL (12.0-16.0); Mean Corp Hgb Conc. 32.9 g/dL (33.0-37.0); Mean Corpuscular Hgb 29.7 pg (27.0-31.0); Mean Corpuscular Volume 90.4 fL (81.0-99.0); Mean Platelet Volume 10.1 fL (7.4-10.4); Nucleated Red Blood Cells % 0 %; Platelet Count 222 10^3/uL (130-400); Red Blood Cell Count 3.84 10^6/uL (4.20-5.40); Red Cell Dist. Width 13.5 % (11.5-14.5); White Blood Cell Count 6.8 10^3/uL (4.8-10.8)
[2024-08-06 08:46] LABS: ALT (SGPT) 17 U/L (0-35); AST (SGOT) 23 U/L (14-36); Albumin 3.7 g/dl (3.5-5.0); Alkaline Phosphatase 55 U/L (38-126); Blood Urea Nitrogen 14 mg/dl (7-17); Calcium 9.3 mg/dl (8.4-10.2); Carbon Dioxide 30 mmol/L (22-30); Chloride 103 mmol/L (98-107); Glucose 90 mg/dl (70-99); Potassium 4.4 mmol/L (3.5-5.1); Sodium 144 mmol/L (135-145); Total Bilirubin 0.4 mg/dl (0.2-1.3); Total Protein 6.4 g/dl (6.3-8.2); eGFR > 60.00
[2024-08-06 10:59] VITALS: BP 102/46
--- NOTE | 2024-08-06 11:41 | W.PN.PAL2 ---
Today's Communication
-
Cm working on placement. Urine culture +for e coli.
Assessment / Plan
-
Assessment/Plan:
83 year old F with dementia (per daughter, Lewy Body with Parkinsonian features) admitted from [facility] s/p fall with head strike and nose laceration. Worsening agitation in the last few weeks. +UTI.
Encounter for Palliative Care
- psych note reviewed. No major changes to meds.
- would recommend avoiding ativan given her age and dementia. Avoid benzos, antihistamines in this population as much as possible.
- agree with increase in seroquel. would prefer this PRN over ativan as well.
- if discharged back to [facility], can follow with palliative care as an outpatient for further management. Daughter prefers SNF to LTC placement if can be accepted somewhere with working on a spend down. CM sent referrals.
Reason for Admission
Illness Course/HPI
Viviana is an 83 year old F with PMH of Parkinson's disease, dementia, HTN, HLD who presented to the ED from [facility] after a fall. +head strike with nose laceration.
In ED received sutures to laceration. CT head negative. +UTI and started on antibiotics. Per chart review, patient with progressive worsening of agitation recently at facility. Had been receiving Ativan Q8 at [facility]. Family working on trying to get her
into memory care with no luck.
Admitted for antibiotics and possible memory care placement.
Objective Data
-
Objective Data:
Vital Signs
Temp Pulse Resp BP Pulse Ox
98.6 F 60 18 102/46 95
08/06/24 10:59 08/06/24 11:32 08/06/24 11:32 08/06/24 10:59 08/06/24 10:59
Laboratory Results
08/06/24 07:22
08/06/24 07:22
Total Protein 6.4 g/dl (6.3-8.2) 08/06/24 07:22
Albumin 3.7 g/dl (3.5-5.0) 08/06/24 07:22
Urine Color Yellow 08/04/24 22:29
Urine Clarity Slightly cloudy (Clear) 08/04/24 22:29
Urine pH 5.0 (5.0-9.0) 08/04/24 22:29
Ur Specific [place] 1.025 (<1.030) 08/04/24 22:29
Urine Ketones Negative (Negative) 08/04/24 22:29
Urine Bilirubin Negative (Negative) 08/04/24 22:29
Palliative Performance Scale
Palliative Performance Scale:
PPS Level Ambulation Activity & Evidence of Disease Self Care Intake Conscious Level
100% Full Normal Activity & Work; Full Intake Full
No Evidence of Disease
90% Full Normal Activity & Work; Full Normal Full
Some Evidence of Disease
80% Full Normal Activity with Effort Full Normal or Full
Some Evidence of Disease Reduced
70% Reduced Unable Normal Job/Work Full Normal or Full
Significant Disease Reduced
60% Reduced Unable Hobby/Housework Occasional Normal or Full or Confusion
Significant Disease Assistance Reduced
50% Mainly Sit/Lie Unable to do Any Work Considerable Normal or Full or Confusion
Extensive Disease Assistance Req'd Reduced
40% Mainly in Bed Unable to do Most Activity Mainly Assistance Normal or Full or Drowsy;
Extensive Disease Reduced +/- Confusion
30% Totally Bed Unable to do Any Activity Total Care Normal or Full or Drowsy;
Bound Extensive Disease Reduced +/- Confusion
20% Totally Bed Bound Unable to do Any Activity Total Care Minimal to Full or Drowsy;
Extensive Disease Sips +/- Confusion
10% Totally Bed Bound Unable to do Any Activity Total Care Mouth Care Drowsy or Coma;
Extensive Disease Only +/- Confusion
0%
PPS Score Level:
Palliative Performance Scale:
PPS Level Ambulation Activity & Evidence of Disease Self Care Intake Conscious Level
100% Full Normal Activity & Work; Full Intake Full
No Evidence of Disease
90% Full Normal Activity & Work; Full Normal Full
Some Evidence of Disease
80% Full Normal Activity with Effort Full Normal or Full
Some Evidence of Disease Reduced
70% Reduced Unable Normal Job/Work Full Normal or Full
Significant Disease Reduced
60% Reduced Unable Hobby/Housework Occasional Normal or Full or Confusion
Significant Disease Assistance Reduced
50% Mainly Sit/Lie Unable to do Any Work Considerable Normal or Full or Confusion
Extensive Disease Assistance Req'd Reduced
40% Mainly in Bed Unable to do Most Activity Mainly Assistance Normal or Full or Drowsy;
Extensive Disease Reduced +/- Confusion
30% Totally Bed Unable to do Any Activity Total Care Normal or Full or Drowsy;
Bound Extensive Disease Reduced +/- Confusion
20% Totally Bed Bound Unable to do Any Activity Total Care Minimal to Full or Drowsy;
Extensive Disease Sips +/- Confusion
10% Totally Bed Bound Unable to do Any Activity Total Care Mouth Care Drowsy or Coma;
Extensive Disease Only +/- Confusion
0%
PPS Score Level:
Physical Exam
-
General: Appears Chronically Ill
HEENT: Normocephalic and Other (nose laceration )
Respiratory: Clear to Auscultation
Cardiac: Regular Rhythm
Peripheral Vascular: No Edema
GI: Soft
Neuro: Awake and Alert
Psych: Confused
Care Reviewed
Data Reviewed
Medical Tests: I reviewed
--- NOTE | 2024-08-06 11:58 | W.PN.UPDATE ---
Addendum entered and electronically signed by Ángela Lawson MD 08/06/24 12:06:
left trazodone and lexapo as is for now but would consider backing off on lexapro 20 mg given 10 mg is the usual max for seniors and also trazodone can contribute to orthostasis. . she is also on aricept . lexapro aricept and seroquel can increase
qtc which should be monitored. it is normal currently.
Original Note:
Update Note
Progress Note Update
patient seen chart reviewed. spoke with nursing and with patient's daugher ms sesay who came to visit. the patient was sleepy having received both ativan and seroquel this am. i could awaken her and she ansswered a few questions for me (some of
the incorrectly ie how many grandkids she has, the year '19...'). she was oriented to place 'hospital' and why she is here 'i fell'. spoke at length w surinder who filled me in on details of patient's life and current illness. patient was described as a
vivacious woman who was devoted to her family especially her grandkids. she could be volatile at times which worsened with the dx of lewy body dementia. d also said her mom was never the same after the of her of many many years. we
discussed medication. despite rexulti patient agitation has continued despite four mg dosing. seroquel and tid ativan were added and d fears they added to patients unsteadiness and the fall. it is also possible that eps like effects of rexulti may
have added to incoordination. at this point would dc rexulti and focus on seroquel which is likely preferred w lewy body. for now observe. have cut back ativan to bid. patient quite sedated this am. will follow
--- NOTE | 2024-08-06 13:33 | W.PN.HOSP.TC ---
Today's Communication/Plan
-
cont rocephin
US LE
Echo
Assessment / Plan
Assessment / Plan
83yo F with PMHx of Parkinsons, significant dementia (poor mentation on the baseline, HLD, COPD, chronic pain brought from [facility] after she sustained the fall while staff was transeffing her to . Found nasal laceration, CT head
and cervical spine without fractures. FOund UTI and became hypoxic over her first 24h of hospitalization
Since significant assistance needed as patient ambulatory status was declining for past months - family would like to place patient to rehab and eventually SNF
A/P:
#Fall without LOC with chronic ambulatory dysfunction
CT head and cervical spine w/o acute findings
PT/OT
Fall precautions
Nasal laceration sutured - remove sutures in 1 week
#UTI
Ceftriaxone and follow Ucx
No CANDICE - no concern for complicated infection at this time
#Acute hypoxic respiratory insufficiency - resolved
#COPD, unlikely exacerbation as no wheezing on exam
#b/l LE swelling
proBNP low, chest XR without definite pneumonia or congestion - Echo and US LE ordered
cont bronchodilators
COVID-19 neg
#Severe Dementia, Lewy-body
#Parkinson disease
#Chronic back pain
#HLD
cont home meds
Psych consult: adjusting meds, following recommendations in the progress notes.
#Mild anemia
f/u with PCP upon d/c
DVT ppx hep
DNR/DNI as per paperwork
I have spent at least 58min reviewing chart, test results and direct patient care
Anticipated Discharge: > 48 hours
Subjective/Interval History
-
Date of Service: August 06, 2024
Objective Data
-
Labs:
Laboratory Results
08/06/24
07:22
WBC 6.8
Hgb 11.4 L
Hct 34.7 L
Plt Count 222
Sodium 144
Potassium 4.4
Chloride 103
Carbon Dioxide 30
BUN 14
Creatinine 0.8
Glucose 90
Calcium 9.3
Total Bilirubin 0.4
AST 23
ALT 17
Alkaline Phosphatase 55
Vital Signs:
Vital Signs
Temp Pulse Resp BP Pulse Ox
98.6 F 60 18 102/46 95
08/06/24 10:59 08/06/24 11:32 08/06/24 11:32 08/06/24 10:59 08/06/24 10:59
I&O
08/05/24 08/06/24 08/07/24
06:59 06:59 06:59
Output Total 250 / 250
Balance -250 / -250
Review of Systems
-
History Source: Patient
All other systems: Reviewed and negative
Physical Exam
-
General: No Apparent Distress
Respiratory: Clear to Auscultation
Cardiac: Regular Rhythm
Psych: Calm
--- NOTE | 2024-08-06 14:31 | CM ---
Addendum entered by Claudia Turner 08/06/24 16:08:
CM spoke with daughter, sent an additional 13 SNF referrals, awaiting response from accepting facilities. [facility] can not accept due to patients Lewy body dementia, update to daughter.
Original Note:
CM reviewed chart, per [facility] can offer patient a bed. [facility] unable to accept due to patients behaviors. CM placed call to patients daughter, Sybil, left voicemail. CM will continue to follow for all discharge
planning needs.
Plan; SNF with transition to LTC
[2024-08-06] MEDS: VENTOLIN NEBULES INH (15:37)
[2024-08-06] MEDS: TYLENOL 650 MG PO (18:41)
[2024-08-06 19:30] VITALS: BP 133/58
[2024-08-06] MEDS: DESYREL 50 MG PO (20:43)
[2024-08-06] MEDS: ARICEPT 10 MG PO (20:44)
[2024-08-06] MEDS: SENOKOT-S 2 TABLET PO (20:44)
[2024-08-06 23:30] VITALS: BP 131/55
[2024-08-07] VITALS (7 sets, daily range): BP systolic 102–153; BP diastolic 50–70; PULSE 72
[2024-08-07] MEDS: VENTOLIN NEBULES 2.5 MG INH (07:31)
[2024-08-07] MEDS: ROCEPHIN 1000 MG IV (08:04)
[2024-08-07] MEDS: SEROQUEL 12.5 MG PO ×2 (08:05→22:04)
[2024-08-07] MEDS: HEPARIN 5000 UNITS SC ×2 (08:05→19:50)
[2024-08-07] MEDS: SANTYL OINTMENT 1 APPLIC TOPICAL (08:05)
[2024-08-07] MEDS: ZETIA 10 MG PO (08:05)
[2024-08-07] MEDS: LEXAPRO 20 MG PO (08:06)
[2024-08-07] MEDS: ATIVAN 0.5 MG PO ×2 (08:06→19:50)
[2024-08-07] MEDS: NEURONTIN 300 MG PO ×3 (08:06→22:02)
[2024-08-07] MEDS: EDECRIN 50 MG PO (08:06)
[2024-08-07] MEDS: PROTONIX 40 MG PO (08:06)
[2024-08-07] MEDS: VENTOLIN NEBULES INH (10:58)
--- NOTE | 2024-08-07 12:30 | W.PN.HOSP.TC ---
Today's Communication/Plan
-
started Ethacrynic acid
CM for rehab
Assessment / Plan
Assessment / Plan
83yo F with PMHx of Parkinsons, significant dementia (poor mentation on the baseline, HLD, COPD, chronic pain brought from [facility] after she sustained the fall while staff was transferring her to . Found nasal laceration, CT head
and cervical spine without fractures. FOund UTI and became hypoxic over her first 24h of hospitalization
Since significant assistance needed as patient ambulatory status was declining for past months - family would like to place patient to rehab and eventually SNF. Medically stable for d/c - CM to work on location
A/P:
#Fall without LOC with chronic ambulatory dysfunction
CT head and cervical spine w/o acute findings
PT/OT
Fall precautions
Nasal laceration sutured - remove sutures in 1 week
#UTI
Ceftriaxone while inpatient, cefdinir if d/c - pansensitive E.coli. Plan for 5 days total treatment of simple cystitis
No CANDICE - no concern for complicated infection at this time
#Acute hypoxic respiratory insufficiency - resolved
#COPD, unlikely exacerbation as no wheezing on exam
#b/l LE swelling 2/2 poor ambulatory capacity and resulted mild fluid overload with poor HTN control
proBNP low, chest XR without definite pneumonia or congestion, however patient with cough over past couple of days
Since allergic to Doxy and on high dose Lexapro - will avoid DOxy and Azithromycin. Cont Rocephin
US LE neg for DVT
Echo with EF 50-55% and moderate pulmonary HTN, Ethacrynic acid started (Sulfa allergy)
cont bronchodilators
COVID-19 neg
#Severe Dementia, Lewy-body
#Parkinson disease
#Chronic back pain
#HLD
cont home meds
Psych consult: adjusting meds, following recommendations in the progress notes.
#Mild anemia
f/u with PCP upon d/c
DVT ppx hep
DNR/DNI as per paperwork
I have spent at least 38min reviewing chart, test results and direct patient care
Anticipated Discharge: Within 24 hours
Subjective/Interval History
-
Date of Service: August 07, 2024
Objective Data
-
Vital Signs:
Vital Signs
Temp Pulse Resp BP Pulse Ox
97.7 F 76 18 102/50 93
08/07/24 11:21 08/07/24 11:21 08/07/24 11:21 08/07/24 11:21 08/07/24 11:21
I&O
08/06/24 08/07/24 08/08/24
06:59 06:59 06:59
Intake Total 300 / 300
Output Total 250 / 250
Balance -250 / -250 300 / 300
Review of Systems
-
History Source: Patient
All other systems: Reviewed and negative
Physical Exam
-
General: No Apparent Distress
Respiratory: Clear to Auscultation
Cardiac: Regular Rhythm
GI: Soft, Nontender and Nondistended
Skin: Warm
Neuro: Awake, Alert, Oriented and AO x 3
Psych: Calm
--- NOTE | 2024-08-07 13:00 | CM ---
Addendum entered by Claudia Turner 08/07/24 14:42:
CM spoke with daughter, additional referrals sent to [facility].
Original Note:
CM spoke with daughter, Sybil, discussed following facilities declining patient or do not have a bed: [facility], [facility], [facility], [facility] (2 year waitlist), [facility]. CM left voicemail for
[facility] to check bed availability. Per [facility], can review patient but unsure if have any LTC beds. Additional referral sent to [facility]. CM discussed patient is medically stable once facility found, [facility] only accepting
facility. Daughter touring [place] today at 3:30 p.m. CM will continue to follow for all discharge planning needs.
Plan; SNF with transition to LTC, multiple facilities declining patient.
--- NOTE | 2024-08-07 13:26 | W.PN.UPDATE ---
Addendum entered and electronically signed by Ángela Lawson MD 08/07/24 13:34:
qtc is 480
Original Note:
Update Note
Progress Note Update
patient seen chart reviewed. discussed w nursing. the patient was able to talk to me this am. she told me a little bit about her family...daughter, grandchildren as i asked her some questions about them (d had told me a lot about her famliy
yesterday). she is a little sedated perhaps from am ativan and seroquel together. trying to cut back on ativan...yesterday decreased to bid but i don't want to stop it precipitously as she has been on it for some time. would continue to try to
taper ativan. at this point patient is cooperative with care. while i was seeing her her left foot started to shake and she winced in pain. apparently a cramp. i did notice her ankles were quite stiff likely secondary to lewy body dx. i defer to
neuro and hospitalist on this.
[2024-08-07] MEDS: TYLENOL 650 MG PO ×2 (17:08→22:05)
[2024-08-07] MEDS: DESYREL 50 MG PO (22:02)
[2024-08-07] MEDS: SENOKOT-S 2 TABLET PO (22:03)
[2024-08-07] MEDS: ARICEPT 10 MG PO (22:04)
[2024-08-08] MEDS: SANTYL OINTMENT 1 APPLIC TOPICAL (06:57)
[2024-08-08 07:00] VITALS: BP 125/56
[2024-08-08] MEDS: ZETIA 10 MG PO (07:23)
[2024-08-08] MEDS: SEROQUEL 12.5 MG PO (07:23)
[2024-08-08] MEDS: ATIVAN 0.5 MG PO ×2 (07:23→20:47)
[2024-08-08] MEDS: NEURONTIN 300 MG PO ×3 (07:23→20:48)
[2024-08-08] MEDS: LEXAPRO 20 MG PO (07:23)
[2024-08-08] MEDS: EDECRIN 25 MG PO (07:24)
[2024-08-08] MEDS: PROTONIX 40 MG PO (07:24)
[2024-08-08] MEDS: TYLENOL 650 MG PO ×2 (07:24→16:37)
[2024-08-08] MEDS: ROCEPHIN 1000 MG IV (07:25)
[2024-08-08] MEDS: HEPARIN 5000 UNITS SC ×2 (07:25→20:47)
[2024-08-08] MEDS: STERILE WATER FOR INJECTION 10 ML IV (07:25)
[2024-08-08 09:18] LABS: Blood Urea Nitrogen 27 mg/dl (7-17); Calcium 9.8 mg/dl (8.4-10.2); Carbon Dioxide 30 mmol/L (22-30); Chloride 99 mmol/L (98-107); Glucose 101 mg/dl (70-99); Potassium 4.2 mmol/L (3.5-5.1); Sodium 141 mmol/L (135-145); eGFR 55.55
--- NOTE | 2024-08-08 12:02 | W.PN.UPDATE ---
Update Note
Progress Note Update
patient seen chart reviewed. spoke with nursing and with dr campo. the patient was loudly moaning this am and trying to get out of bed. she was insisting that she needed to use the bathroom but had been incontinent. it was hard to comfort her
as she was not able to express herself. she did quiet down with staff in the room. nursing tells me patient has struggled with being agitated throughout the day. have increased seroquel to 25 mg bid and reduced lexapro to 10 mg given warning re
prolonged qtc with seroquel lexapro and aricept. would recheck the ecg early next week after a few days change in the seroquel (ordered for sunday). cm with whom i spoke told me many ia have felt unable to accept patient given lewy body dx. cm
spoke with staff member at prior residence ([facility]) this am. the patient was described as occasionally yelling out while there but not physically aggressive. [facility] feels she would need to go to snf prior to returning back to them. it was my
impression talking to d that family does not want her to go back there. psych will see her on weekend.
--- NOTE | 2024-08-08 13:27 | W.PN.HOSP.TC ---
Today's Communication/Plan
-
Neuro consult
cont Ceftriaxone while inpatient, switch to Cefdinir upon d/c
Assessment / Plan
Assessment / Plan
83yo F with PMHx of Parkinsons, significant dementia (poor mentation on the baseline, HLD, COPD, chronic pain brought from [facility] after she sustained the fall while staff was transferring her to . Found nasal laceration, CT head
and cervical spine without fractures. Found UTI and became hypoxic over her first 24h of hospitalization, hypoxia resolved with Abx and Ucx grew Ecoli sensitive to cephalosporins.
Since significant assistance needed as patient ambulatory status was declining for past months - family would like to place patient to rehab and eventually SNF. Medically stable for d/c - CM to work on location, however LBD diagnosis is a roadblock
for acceptance in the facilities. Getting neurologist input
A/P:
#Fall without LOC with chronic ambulatory dysfunction
CT head and cervical spine w/o acute findings
PT/OT
Fall precautions
Nasal laceration sutured - remove sutures in 1 week
#UTI
Ceftriaxone while inpatient, cefdinir if d/c - pansensitive E.coli. Plan for 5 days total treatment of simple cystitis
No CANDICE - no concern for complicated infection at this time
#Acute hypoxic respiratory insufficiency - resolved
#COPD, unlikely exacerbation as no wheezing on exam
#b/l LE swelling 2/2 poor ambulatory capacity and resulted mild fluid overload with poor HTN control
proBNP low, chest XR without definite pneumonia or congestion, however patient with cough over past couple of days
Since allergic to Doxy and on high dose Lexapro - will avoid DOxy and Azithromycin. Cont Rocephin
US LE neg for DVT
Echo with EF 50-55% and moderate pulmonary HTN, Ethacrynic acid started (Sulfa allergy)
cont bronchodilators
COVID-19 neg
#Severe Dementia, previously diagnosed with Lewy-body
#Parkinson disease
#Chronic back pain
#HLD
cont home meds
Psych consult: adjusting meds, following recommendations in the progress notes.
Neurology consult
#Mild anemia
f/u with PCP upon d/c
DVT ppx hep
DNR/DNI as per paperwork
I have spent at least 38min reviewing chart, test results and direct patient care
Anticipated Discharge: 24 - 48 hours
Subjective/Interval History
-
Date of Service: August 08, 2024
Objective Data
-
Labs:
Laboratory Results
08/08/24
08:11
Sodium 141
Potassium 4.2
Chloride 99
Carbon Dioxide 30
BUN 27 H
Creatinine 1.0
Glucose 101 H
Calcium 9.8
Vital Signs:
Vital Signs
Temp Pulse Resp BP Pulse Ox
97.8 F 82 20 125/56 90
08/08/24 07:00 08/08/24 07:00 08/08/24 07:00 08/08/24 07:00 08/08/24 07:00
I&O
08/07/24 08/08/24 08/09/24
06:59 06:59 06:59
Intake Total 300 / 300 360 / 360
Balance 300 / 300 360 / 360
Review of Systems
-
Unable to obtain full review of systems at this time due to: Dementia
History Source: Patient
All other systems: Reviewed and negative
Physical Exam
-
General: Comfortable
Respiratory: Clear to Auscultation
Cardiac: Regular Rhythm
GI: Soft, Nontender and Nondistended
Neuro: Awake, Alert and Oriented
Psych: Calm and Apparent Dementia
--- NOTE | 2024-08-08 14:06 | CM ---
CM reviewed chart, patient remains on medsitter. Additional referrals sent to SNF. Daughter requesting neuro eval, update to Hospitalist with request. CM spoke with nurse Talbot at [facility] to obtain patients PLOF. Per [facility], patient admitted to
their facility using a walker, over the past month has been mostly using wheelchair. Nurse reports patient occasionally will yell 'help me', rarely shows aggressive behavior. CM reviewed PT notes with nurse, nurse reports if patient were to return,
they would need patient to discharge to SNF prior to returning. CM will continue to follow for all discharge planning needs.
Plan; SNF with transition to LTC when facility found, patient remains on medsitter.
[2024-08-08 15:00] VITALS: BP 122/69
--- NOTE | 2024-08-08 16:00 | CON.NEURO4 ---
Consultation - Neurology 4
-
CONSULTING PHYSICIAN: Jonah Aguilar MD (Neurology)
REFERRING PHYSICIAN: Hospitalist
DICTATED BY: Jonah Aguilar MD
DATE/TIME OF REQUEST: 08/08/2024
DATE/TIME OF CONSULTATION: 08/08/2024
Reason for Consultation: Altered mental status
History of Present Illness:
This is a 83 year old right handed female who has presented to the hospital with (chief complaint) of altered mental status. She gives a history of Parkinson's, hyperlipidemia, hypertension who was admitted from [facility] for
evaluation after witnessed fall. Patient is somewhat limited as a historian due to her Parkinson's with associated dementia. She is able to tell me that she fell down but cannot tell me how she fell .
assisted staff report that patient was trying to transition from wheelchair to bed and fell to the ground. Struck her head and sustained laceration to the nose. No loss of consciousness. She was sent to the emergency room for evaluation given
her head trauma. She does have dementia at baseline with incoherent speech at baseline according to staff there. She did receive Ativan earlier for agitation.
When patient is asked if she has any complaints she says 'no.' She denies headache or neck pain, back pain, chest pain, abdominal pain, pain in her extremities. Review of her medication shows no blood thinners.
Her facial laceration was sutured UA showed evidence for UTI and she was placed on IV antibiotics. Following admission she remains docile and is not agitated
She was seen by psychiatry and was diagnosed to have dementia with recommendation to continue Aricept Celexa Seroquel and trazodone
On my exam patient is arousable confused oriented to person place. Speech is limited but appropriate, answers all one-word. She is unable to maintain a conversation. There is no focal weakness or numbness of face or extremities
-
Past Medical History: As above
Surgical History: None reported
Family History: Noncontributory
Social History: assisted resident does not smoke or use alcohol
Allergies: See addendum
Home Medications: See addendum
Review of Symptoms: I am unable to obtain a complete review of systems�because of patient's inability to provide history.'
Vital Signs:
The patient has a
Temp Pulse Resp BP Pulse Ox
36.6 C 82 20 125/56 90
Physical Exam:
The patient is afebrile, heart sounds S1 and S2 are (regular , and chest is clear to auscultation bilaterally.
Neurologic Examination:
The patient is arousable confused and oriented x person. She) is able to follow commands intermittently and answer questions occasionally. Speech is limited with dysarthria and there is word finding issues with aphasia . On cranial nerve
assessment, pupils are 3 mm bilateral, round and reactive to light and accommodation. Visual eubanks are full. Extraocular movements are intact. Facial sensations are intact and bilaterally symmetrical,
there is no facial asymmetry. Masking of the face. Hearing is impaired bilaterally . Tongue palate and uvula are midline. Gag is present. Sternocleidomastoid strengths are full bilaterally.
Motor exam reveals increased tone with cogwheeling. Strengths is 4/5 bilateral upper and lower extremities. There is no drift or involuntary movement noted. Deep tendon reflexes are + bilateral upper and lower extremities and Babinski is absent
bilaterally.
Sensations of pain, touch, temperature and vibration are intact and asymmetrical.. Coordination is slow and she is unable to perform finger to nose bilaterally.
Romberg's and gait cannot be tested as the patient is unable to stand without assist
Lab Results: See addendum
Neuro Imaging: CT of head shows diffuse cortical atrophy mild ventriculomegaly with small vessel disease
Impression:
MsKristin) YOANDY STEEN is a 83 year old F who has presented to the hospital with (symptoms/chief complaint). Falls secondary to Parkinson's. She also has Parkinson's associated dementia. She also has worsening cognition secondary to ongoing UTI
Recommendations:
1. Start Sinemet 10/100 BID
2. Start amantadine 100 mg daily
3. Continue Aricept 10 mg at bedtime
4. Continue Lexapro 20 mg
5. Continue Seroquel 50 mg
6. Continue trazodone
7. Continue ceftriaxone. Avoid fluoroquinolones
Patient may be transferred to senior living once medically stable
Discussed patient care with: Hospitalist
Allergies
-
Allergies
Allergy/AdvReac Type Severity Reaction Status Date / Time
amoxicillin Allergy Unknown Verified 02/28/24 14:02
ciprofloxacin Allergy Unknown Verified 02/28/24 14:02
doxycycline Allergy Unknown Verified 02/28/24 14:02
ibuprofen Allergy Unknown Verified 02/28/24 14:02
Vcpwiia-KAC-SsL Reductase Allergy Unknown Verified 02/28/24 14:02
Inhibitor
Sulfa (Sulfonamide Allergy Unknown Verified 02/28/24 14:02
Antibiotics)
Vital Signs and Labs
-
Vital Signs and Labs:
Vital Signs
Temp Pulse Resp BP Pulse Ox
36.6 C 82 20 125/56 90
08/08/24 07:00 08/08/24 07:00 08/08/24 07:00 08/08/24 07:00 08/08/24 07:00
Lab Results
08/06/24 07:22
08/08/24 08:11
Sodium 141 mmol/L (135-145) 08/08/24 08:11
Potassium 4.2 mmol/L (3.5-5.1) 08/08/24 08:11
BUN 27 mg/dl (7-17) H 08/08/24 08:11
Glucose 101 mg/dl (70-99) H 08/08/24 08:11
Calcium 9.8 mg/dl (8.4-10.2) 08/08/24 08:11
Agb-Z-Pkeijvnqwac Pept 143 pg/ml 08/05/24 10:10
Medications
-
Active Medications
Generic Name Dose Route Start Last Admin
Trade Name Freq PRN Reason Stop Dose Admin
Acetaminophen 650 mg 08/04/24 23:42 08/08/24 07:24
Acetaminophen 325 Mg Tablet PO 09/01/24 23:41 650 mg
Q4HPRN PRN Administration
mild pain/MCDANIELS/temp> 100.4F
Albuterol Sulfate 2.5 mg 08/07/24 11:18
Albuterol Nebs 2.5 Mg/3 Ml Ampul INH
R Q4HPRN PRN
SOB
Bisacodyl 10 mg 08/04/24 23:42
Bisacodyl 10 Mg Rectal Suppository RECTAL 09/01/24 23:41
[id number] PRN
constipation
Ceftriaxone Sodium 1,000 mg 08/05/24 08:00 08/08/24 07:25
Ceftriaxone 1000 Mg / 10 Ml Vial IV 1,000 mg
Q24H FESTUS Administration
Collagenase 0 applic 08/06/24 08:00 08/08/24 06:57
Collagenase Ointment 2.5 Gram Jar TOPICAL 09/03/24 07:59 1 applic
DAILY FESTUS Administration
Donepezil HCl 10 mg 08/04/24 23:42 08/07/24 22:04
Donepezil Hcl 10 Mg Tablet PO 09/01/24 23:41 10 mg
HS FESTUS Administration
Ezetimibe 10 mg 08/05/24 08:00 08/08/24 07:23
Ezetimibe (Zetia) 10 Mg Tablet PO 09/02/24 07:59 10 mg
DAILY FESTUS Administration
Escitalopram Oxalate 10 mg 08/08/24 12:02
Escitalopram 10 Mg Tablet PO 09/02/24 07:59
DAILY FESTUS
Ethacrynic Acid 25 mg 08/07/24 12:44 08/08/24 07:24
Ethacrynic Acid 25 Mg Tablet PO 09/04/24 07:59 25 mg
DAILY FESTUS Administration
Gabapentin 300 mg 08/04/24 23:42 08/08/24 07:23
Gabapentin 300 Mg Capsule PO 09/01/24 23:41 300 mg
TID FESTUS Administration
Heparin Sodium 5,000 units 08/05/24 08:00 08/08/24 07:25
Heparin 5,000 Units/Ml 1 Ml Vial SC 09/02/24 07:59 5,000 units
Q12 FESTUS Administration
Lorazepam 0.5 mg 08/06/24 20:00 08/08/24 07:23
Lorazepam 0.5 Mg Tablet PO 09/03/24 19:59 0.5 mg
Q12H FESTUS Administration
Pantoprazole Sodium 40 mg 08/05/24 08:00 08/08/24 07:24
Pantoprazole 40 Mg Delayed Release Tablet PO 09/02/24 07:59 40 mg
DAILY FESTUS Administration
Polyethylene Glycol 17 grams 08/04/24 23:42
Polyethylene Glycol Powder 17 Grams Packet PO 09/01/24 23:41
DAILYPRN PRN
constipation
Quetiapine Fumarate 25 mg 08/08/24 12:01
Quetiapine 25 Mg Tablet PO 09/01/24 23:41
AMHS FESTUS
Senna/Docusate Sodium 2 tablet 08/04/24 23:42 08/07/24 22:03
Docusate W/Senna (Guillermina-Colace) Tablet PO 09/01/24 23:41 2 tablet
HS FESTUS Administration
Senna/Docusate Sodium 1 tablet 08/04/24 23:42
Docusate W/Senna (Guillermina-Colace) Tablet PO 09/01/24 23:41
BIDPRN PRN
constipation
Sodium Chloride 0 flush 08/04/24 22:00
Sodium Chloride 0.9% (Flush) Syringe IV 09/01/24 21:59
PER PROTOCOL FESTUS
Sterile Water 10 ml 08/06/24 08:00 08/08/24 07:25
Sterile Water For Injection 10 Ml Vial IV 09/03/24 07:59 10 ml
DAILY@0800 FESTUS Administration
Trazodone HCl 50 mg 08/04/24 23:42 08/07/24 22:02
Trazodone 50 Mg Tablet PO 09/01/24 23:41 50 mg
FESTUS Administration
Home Medications
�Medication �Instructions �Recorded
acetaminophen 500 mg tablet 1,000 mg PO TID 08/04/24
albuterol sulfate 2.5 mg/3 mL 2.5 mg inhalation R QID 08/04/24
(0.083 %) solution for nebulization
albuterol sulfate 90 mcg/actuation 1 puff inhalation R BID 08/04/24
aerosol inhaler
brexpiprazole 2 mg tablet (Rexulti) 4 mg PO DAILY 08/04/24
cholecalciferol (vitamin D3) 25 25 mcg PO DAILY 08/04/24
mcg (1,000 unit) tablet
donepezil 5 mg tablet 10 mg PO HS 08/04/24
escitalopram oxalate 10 mg tablet 20 mg PO DAILY 08/04/24
ezetimibe 10 mg tablet 10 mg PO DAILY 08/04/24
gabapentin 300 mg capsule 300 mg PO TID 08/04/24
qludfscr-svj-uthmbyecg-C-hyaluronic 1 tab PO DAILY 08/04/24
500 mg-300 mg-400 mg-10 mg tablet
lorazepam 0.5 mg tablet 0.5 mg PO Q8H 08/04/24
methocarbamol 500 mg tablet 500 mg PO TID 08/04/24
omeprazole 20 mg tablet,delayed 20 mg PO DAILY 08/04/24
release
oxycodone-acetaminophen 5 mg-325 1 tab PO Q8HPRN PRN moderate pain 08/04/24
mg tablet (Percocet)
quetiapine 25 mg tablet 12.5 mg PO HS 08/04/24
sennosides 8.6 mg-docusate sodium 2 tab PO HS 08/04/24
50 mg tablet (Stimulant Laxative
Plus)
therapeutic multivitamin 1 tab PO DAILY 08/04/24
trazodone 50 mg tablet 50 mg PO HS 08/04/24
[2024-08-08] MEDS: SINEMET 10-100 1 TABLET PO (20:48)
[2024-08-08] MEDS: ARICEPT 10 MG PO (20:48)
[2024-08-08] MEDS: DESYREL 50 MG PO (20:48)
[2024-08-08] MEDS: SENOKOT-S 2 TABLET PO (20:48)
[2024-08-08] MEDS: SEROQUEL 25 MG PO (20:49)
[2024-08-08 23:10] VITALS: BP 102/59
[2024-08-09] MEDS: ZETIA 10 MG PO (09:22)
[2024-08-09] MEDS: LEXAPRO 10 MG PO (09:22)
[2024-08-09] MEDS: SYMMETREL 100 MG PO (09:22)
[2024-08-09] MEDS: HEPARIN 5000 UNITS SC ×2 (09:23→19:57)
[2024-08-09] MEDS: SEROQUEL 25 MG PO ×2 (09:23→19:58)
[2024-08-09] MEDS: SINEMET 10-100 1 TABLET PO ×2 (09:23→19:58)
[2024-08-09] MEDS: SANTYL OINTMENT 1 APPLIC TOPICAL (09:23)
[2024-08-09] MEDS: EDECRIN 25 MG PO (09:23)
[2024-08-09] MEDS: NEURONTIN 300 MG PO ×3 (09:23→19:58)
[2024-08-09] MEDS: PROTONIX 40 MG PO (09:23)
[2024-08-09] MEDS: ATIVAN 0.5 MG PO ×2 (09:24→19:57)
[2024-08-09] MEDS: STERILE WATER FOR INJECTION 10 ML IV (09:24)
[2024-08-09] MEDS: ROCEPHIN 1000 MG IV (09:24)
--- NOTE | 2024-08-09 09:44 | W.PN.HOSP.TC ---
Today's Communication/Plan
-
CM for rehab
Assessment / Plan
Assessment / Plan
83yo F with PMHx of Parkinsons, parkinson dementia (poor mentation on the baseline), HLD, COPD, chronic pain brought from [facility] after she sustained the fall while staff was transferring her to . Found nasal laceration, CT head
and cervical spine without fractures. Found UTI and became hypoxic over her first 24h of hospitalization, hypoxia resolved with Abx and Ucx grew Ecoli sensitive to cephalosporins.
Since significant assistance needed as patient ambulatory status was declining for past months - family would like to place patient to rehab and eventually SNF. Medically stable for d/c - CM to work on location. Medically stable for d/c
A/P:
#Fall without LOC with chronic ambulatory dysfunction
CT head and cervical spine w/o acute findings
PT/OT
Fall precautions
Nasal laceration sutured - remove sutures around 08/14/24
#UTI
Ceftriaxone while inpatient, cefdinir if d/c - pansensitive E.coli. Plan for 5 days total treatment of simple cystitis
No CANDICE - no concern for complicated infection at this time
#Acute hypoxic respiratory insufficiency - resolved
#COPD, unlikely exacerbation as no wheezing on exam
#b/l LE swelling 2/2 poor ambulatory capacity and resulted mild fluid overload with poor HTN control
proBNP low, chest XR without definite pneumonia or congestion, however patient with cough over past couple of days
Since allergic to Doxy and on high dose Lexapro - will avoid DOxy and Azithromycin. Cont Rocephin
US LE neg for DVT
Echo with EF 50-55% and moderate pulmonary HTN, Ethacrynic acid started (Sulfa allergy)
cont bronchodilators
COVID-19 neg
#Severe Dementia, most likely Parkinson
#Parkinson disease
#Chronic back pain
#HLD
cont home meds
Psych consult: adjusting meds, following recommendations in the progress notes.
Neurology consult: started Sinemet
#Mild anemia
f/u with PCP upon d/c
DVT ppx hep
DNR/DNI as per paperwork
I have spent at least 38min reviewing chart, test results and direct patient care
Anticipated Discharge: > 48 hours
Subjective/Interval History
-
Date of Service: August 09, 2024
Objective Data
-
Vital Signs:
Vital Signs
Temp Pulse Resp BP Pulse Ox
98.6 F 74 18 102/59 93
08/08/24 23:10 08/08/24 23:10 08/08/24 23:10 08/08/24 23:10 08/08/24 23:10
I&O
08/08/24 08/09/24 08/10/24
06:59 06:59 06:59
Intake Total 360 / 360 960 / 960
Balance 360 / 360 960 / 960
Review of Systems
-
History Source: Patient
All other systems: Reviewed and negative
Physical Exam
-
General: No Apparent Distress
HEENT: Normocephalic
Cardiac: Regular Rhythm
GI: Soft, Nontender and Nondistended
Neuro: Awake, Alert and Oriented
Psych: Calm
[2024-08-09] MEDS: TYLENOL 650 MG PO ×2 (09:58→17:54)
[2024-08-09] MEDS: LIDOCAINE 4% PATCH 1 PATCH TOPICAL (12:15)
--- NOTE | 2024-08-09 12:34 | W.PN.UPDATE ---
Update Note
Progress Note Update
Psychiatry follow up. Chart reviewed and case discussed with nursing who states patient continues to yell out through the day if no one is in the room but quiet when someone is in there and no physical aggression. Seroquel was increased to 25mg BID
and lexapro decreased to 10mg daily yesterday. On exam she is repeating 'help' to me but not shouting. She admits her bottom hurts. I encouraged her to try to nap as she appears tired. She nods ok.
Plan- Continue Seroquel and Lexapro at current doses and monitor response to recent dose changes changes. Continue Aricept, trazodone, and Ativan at current doses. ECG ordered for 08/11. Plan is for SNF placement.
[2024-08-09 15:00] VITALS: BP 113/54
[2024-08-09] MEDS: ARICEPT 10 MG PO (19:58)
[2024-08-09] MEDS: SENOKOT-S 2 TABLET PO (19:58)
[2024-08-09] MEDS: DESYREL 50 MG PO (19:59)
--- NOTE | 2024-08-09 20:23 | W.PN.NEURO.1 ---
Addendum entered and electronically signed by Jonah Aguilar MD 08/13/24 20:14:
Pat confusion is multifactorial due to Metabolic Encephalopathy which is secondary to UTI and progression of Parkinson's dementia with agitation
Original Note:
Today's Communication / Plan
-
Sinemet 10/100 BID
Seroquel 25 mg BID
Lidoderm patch
Neuro Assessment/Plan
Assessment
83 yr. old lady with h/o Parkinson's, dementia who is agitated
Plan
Sinemet 10/100 TID
Seroquel 25 BID
Lidoderm patch
Subjective/Objective
Subjective Data
Date of Service: August 09, 2024
Pat continue to be confused and agitated intermittently
Objective Data
Vital Signs
Temp Pulse Resp BP Pulse Ox
37.0 C 74 16 113/54 98
08/08/24 23:10 08/09/24 15:00 08/09/24 15:00 08/09/24 15:00 08/09/24 15:00
Lab Results
08/06/24 07:22
08/08/24 08:11
Sodium 141 mmol/L (135-145) 08/08/24 08:11
Potassium 4.2 mmol/L (3.5-5.1) 08/08/24 08:11
BUN 27 mg/dl (7-17) H 08/08/24 08:11
Glucose 101 mg/dl (70-99) H 08/08/24 08:11
Calcium 9.8 mg/dl (8.4-10.2) 08/08/24 08:11
His-R-Ehtomxjwovm Pept 143 pg/ml 08/05/24 10:10
Patient Allergies
amoxicillin Allergy (Verified 02/28/24 14:02)
Unknown
ciprofloxacin Allergy (Verified 02/28/24 14:02)
Unknown
doxycycline Allergy (Verified 02/28/24 14:02)
Unknown
ibuprofen Allergy (Verified 02/28/24 14:02)
Unknown
Iapvdjb-GUW-SbD Reductase Inhibitor Allergy (Verified 02/28/24 14:02)
Unknown
Sulfa (Sulfonamide Antibiotics) Allergy (Verified 02/28/24 14:02)
Unknown
Physical Exam
-
General: Well Developed, Appears in Distress and Appears Chronically Ill
Eyes: Able to visualize OU, Unremarkable and Round OU
HEENT: Normocephalic, Atraumatic and Anicteric
Neck: Full Range of Motion
Respiratory: Clear to Auscultation
Skin: Unremarkable
Extremities: No Clubbing, No Cyanosis and Edema +1
Psych: Confused and Agitated
Extended Neurological Exam
Attention Span & Concentration: Awake, Interactive and Unable to Perform 2 Step Request
Memory: Unable to Assess
Involuntary Movement: None
Speech: Severely Reduced Output, Dysarthric and Variable
Cranial Nerve II: Left Eye: Pupillary Reactivity Unremarkable, Pupillary Size Unremarkable and Visual Milner Grossly Intact
Cranial Nerve II: Right Eye: Pupillary Reactivity Unremarkable, Pupillary Size Unremarkable and Visual Milner Grossly Intact
Cranial Nerves III, IV, : Extraocular Movement: Extraocular Movement Full in all Directions
Cranial Nerve V: Facial Sensation: Facial Sensation Unremarkable to Cold and Intact to Light Touch
Cranial Nerve VII: Facial Symmetry: Normal Facial Symmetry and Other (Masked facies)
Cranial Nerve VIII: Hearing: Unremarkable Hearing to Normal Conversational Volume
Cranial Nerves IX, X: Palate Movement: Palate Elevation Symmetric
Cranial Nerve XI: Shoulder Shrug: Unremarkable
Cranial Nerve XII: Tongue Protusion: Midline
Muscle Strength, Overall: Reduced Throughout and Reduced Bilaterally
Muscle Bulk & Tone: Bulk Unremarkable and Increased Tone (Cogwheel rigidity)
Pronator Drift: No Drift in Upper Extremities and No Drift in Lower Extremities
Deep Tendon Reflexes: Unremarkable Throughout
Cold Sensation: Unremarkable
Vibration Sensation: Unremarkable
Touch Sensation: Unremarkable
Coordination: Unable to Assess
Babinski Sign: Absent Bilaterally
Gait & Station: Up from Lying with Difficulty and Unable to Assess (Advanced Parkinsons. Bedbound)
Modified Heather Score (MRS)
-
Modified [place] Scale (mRS): Severe disability. Requires constant nursing care.
Score: 5
[2024-08-10 04:56] VITALS: BP 116/59
[2024-08-10] MEDS: LIDOCAINE 4% PATCH 1 PATCH TOPICAL (07:40)
[2024-08-10] MEDS: HEPARIN 5000 UNITS SC ×2 (07:41→20:32)
[2024-08-10] MEDS: SANTYL OINTMENT 1 APPLIC TOPICAL (07:41)
[2024-08-10] MEDS: PROTONIX 40 MG PO (07:41)
[2024-08-10] MEDS: SINEMET 10-100 1 TABLET PO ×3 (07:41→22:39)
[2024-08-10] MEDS: NEURONTIN 300 MG PO ×3 (07:41→22:37)
[2024-08-10] MEDS: SYMMETREL 100 MG PO (07:41)
[2024-08-10] MEDS: ATIVAN 0.5 MG PO ×2 (07:42→20:34)
[2024-08-10 07:44] VITALS: BP 117/48
[2024-08-10] MEDS: ZETIA 10 MG PO (07:51)
[2024-08-10] MEDS: ROCEPHIN 1000 MG IV (07:51)
[2024-08-10] MEDS: LEXAPRO 10 MG PO (07:52)
[2024-08-10] MEDS: STERILE WATER FOR INJECTION 10 ML IV (07:52)
[2024-08-10] MEDS: EDECRIN 25 MG PO (07:52)
[2024-08-10] MEDS: SEROQUEL 25 MG PO ×2 (07:52→20:34)
--- NOTE | 2024-08-10 13:03 | W.PN.HOSP.TC ---
Today's Communication/Plan
-
CM working on rehab, stable for d/c
Assessment / Plan
Assessment / Plan
83yo F with PMHx of Parkinsons, parkinson dementia (poor mentation on the baseline), HLD, COPD, chronic pain brought from [facility] after she sustained the fall while staff was transferring her to . Found nasal laceration, CT head
and cervical spine without fractures. Found UTI and became hypoxic over her first 24h of hospitalization, hypoxia resolved with Abx and Ucx grew Ecoli sensitive to cephalosporins.
Since significant assistance needed as patient ambulatory status was declining for past months - family would like to place patient to rehab and eventually SNF. Medically stable for d/c - CM to work on location. Medically stable for d/c
A/P:
#Fall without LOC with chronic ambulatory dysfunction
CT head and cervical spine w/o acute findings
PT/OT
Fall precautions
Nasal laceration sutured - remove sutures around 08/14/24
#UTI
Ceftriaxone completed 5 days
No CANDICE - no concern for complicated infection at this time
#Acute hypoxic respiratory insufficiency - resolved
#COPD, unlikely exacerbation as no wheezing on exam
#b/l LE swelling 2/2 poor ambulatory capacity and resulted mild fluid overload with poor HTN control
proBNP low, chest XR without definite pneumonia or congestion, however patient with cough over past couple of days
Since allergic to Doxy and on high dose Lexapro - will avoid DOxy and Azithromycin. Cont Rocephin
US LE neg for DVT
Echo with EF 50-55% and moderate pulmonary HTN, Ethacrynic acid started (Sulfa allergy)
cont bronchodilators
COVID-19 neg
#Severe Dementia, most likely Parkinson
#Parkinson disease
#Chronic back pain
#HLD
cont home meds
Psych consult: adjusting meds, following recommendations in the progress notes.
Neurology consult: started Sinemet
#Mild anemia
f/u with PCP upon d/c
DVT ppx hep
DNR/DNI as per paperwork
I have spent at least 38min reviewing chart, test results and direct patient care
Anticipated Discharge: 24 - 48 hours
Subjective/Interval History
-
Date of Service: August 10, 2024
Objective Data
-
Vital Signs:
Vital Signs
Temp Pulse Resp BP Pulse Ox
97.7 F 78 20 117/48 94
08/10/24 07:44 08/10/24 07:44 08/10/24 07:44 08/10/24 07:44 08/10/24 07:44
I&O
08/09/24 08/10/24 08/11/24
06:59 06:59 06:59
Intake Total 960 / 960 960 / 960 120 / 120
Balance 960 / 960 960 / 960 120 / 120
Review of Systems
-
Unable to obtain full review of systems at this time due to: Dementia
History Source: Patient
All other systems: Reviewed and negative
Physical Exam
-
General: No Apparent Distress
HEENT: Normocephalic
GI: Soft, Nontender and Nondistended
Psych: Agitated and Apparent Dementia
--- NOTE | 2024-08-10 14:22 | CM ---
Patient with Hx Parkinsons Dementia with Dx Fall with chronic ambulatory dysfunction, UTI. Seen by Psych: Dementia with agitation, reportedly dx'd with Lewy Body dz. Room air. Receiving IV Abx, Seroquel. Medsitter.
Request from Dr Jaimes for d/c planning to SNF.
Spoke with patient's nurse Belinda; patient had still been attempting to climb out of bed overnight so not comfortable stopping Medsitter today. Perhaps Medsitter can be stopped tomorrow.
23 SNF referrals in [facility] reviewed; [facility] expressed interest. [facility] will check on Sunday for available bed.
Spoke with [facility] including [facility]; they are able to accept once Medsitter is off 24 hrs.
Spoke with daughter Sybil for 29 minutes:
reviewed all responding SNFs. Daughter unsure she will agree with [facility] as her mother would have a few roomates, due to concern with patient's yelling at times. Discussed other SNF options- suggested [facility] due to private rooms.
Daughter would like to focus on [facility], [facility], [facility]. Daughter relays patient has about $[phone] in savings and then would need to apply for MA for LTC.
Suggest strategy wait until patient off Medsitter with no agitated behaviors then reach out to SNFs for reconsideration.
Patient will need updated PT/OT notes.
Plan follow up with daughter's preferred SNFs once Medsitter d/c;ed and patient has no agitated behaviors.
[2024-08-10 17:04] VITALS: BP 112/51
[2024-08-10 21:04] LABS: Blood Urea Nitrogen 28 mg/dl (7-17); Calcium 9.6 mg/dl (8.4-10.2); Carbon Dioxide 31 mmol/L (22-30); Chloride 98 mmol/L (98-107); Glucose 116 mg/dl (70-99); Potassium 4.1 mmol/L (3.5-5.1); Sodium 140 mmol/L (135-145); eGFR 55.55
[2024-08-10] MEDS: SENOKOT-S 2 TABLET PO (22:37)
[2024-08-10] MEDS: DESYREL 50 MG PO (22:37)
[2024-08-10] MEDS: ARICEPT 10 MG PO (22:37)
[2024-08-10] MEDS: TYLENOL 650 MG PO (22:47)
[2024-08-10 22:52] VITALS: BP 100/48
[2024-08-11] MEDS: SANTYL OINTMENT 1 APPLIC TOPICAL (06:04)
[2024-08-11] MEDS: ZETIA 10 MG PO (08:38)
[2024-08-11] MEDS: ATIVAN 0.5 MG PO ×2 (08:38→20:08)
[2024-08-11] MEDS: SYMMETREL 100 MG PO (08:38)
[2024-08-11] MEDS: SINEMET 10-100 1 TABLET PO ×3 (08:38→22:23)
[2024-08-11] MEDS: HEPARIN 5000 UNITS SC ×2 (08:38→20:09)
[2024-08-11] MEDS: NEURONTIN 300 MG PO ×3 (08:38→22:22)
[2024-08-11] MEDS: LIDOCAINE 4% PATCH 1 PATCH TOPICAL (08:39)
[2024-08-11] MEDS: LEXAPRO 10 MG PO (08:39)
[2024-08-11] MEDS: EDECRIN 25 MG PO (08:39)
[2024-08-11] MEDS: SEROQUEL 25 MG PO ×3 (08:39→20:08)
[2024-08-11] MEDS: PROTONIX 40 MG PO (08:39)
[2024-08-11] MEDS: STERILE WATER FOR INJECTION IV (08:40)
[2024-08-11] MEDS: TYLENOL 650 MG PO (08:41)
[2024-08-11 08:47] VITALS: BP 102/54
--- NOTE | 2024-08-11 10:29 | CM ---
Addendum entered by Destiny Mcneal RN 08/11/24 11:08:
CM spoke with the patient's daughter via telephone for approximately 25 minutes reviewing the patient's medications and facilities unable/unwilling to accept. Need to have PT evaluate patient for new/updated referrals to be sent. CM discussed with
the patient's daughter the facilities who do not accept MA and some that have a waiting list for stable attendant. Daughter interested in additional referrals to [facility], and [facility] once updated PT
notes are available.
Original Note:
Reviewed the chart notes and spoke with the patient's RN at the bedside. Medsitter continues. RN to attempt to remove today. Only facility interested in the patient at this time is [facility]. Left message for daughter to discuss
other facilities. CM continues to be available to patient/family and is monitoring medical plan for needs at discharge.
Plan: Discharge to SNF once bed found and patient off Medsitter for 24 hrs.
--- NOTE | 2024-08-11 10:46 | PN.CDI ---
CDI
- -
CDI:
Physician Documentation Request
Admit Date: 08/05/24 08:21
Dear Doctor,
Please review the following and provide your response in the progress notes.
Clinical Indicators:
Pt admitted with Lewy Body dementia and UTI
Patient care note 08/05 @ 1200, ' Received pt this AM calling out for help. Pt oriented to self only. Confused and anxious...When left along pt calls out continuously for help.....0.5 PO Ativan given this AM w/ good result....'
[facility] care note 08/05 @ 1600, ' Pt w/ increased agitation.... Scheduled 0.5mg PO Ativan ....'
Neurology consult,' ...dementia with recommendation to continue Aricept Celexa Seroquel and trazodoneOn my exam patient is arousable confused oriented to person place. Speech is limited but appropriate, answers all one-word. She is unable to
maintain a conversation. She also has Parkinson's associated dementia. She also has worsening cognition secondary to ongoing UTI....'
Based on the above, could you clarify in the Progress Notes and Discharge Summary which, if any of the following, is the most likely etiology of the confusion/altered mental status.
Multifactorial due to Metabolic Encephalopathy with UTI/ Worsening Progression of Parkinson's dementia with agitation
Worsening progression of Parkinson's dementia only
Other
Use of terms such as suspected, likely, concern for, or probable (associated with a specific diagnosis that is being evaluated, monitored, or treated as if it exists) are acceptable and can be coded in the inpatient setting, when documented at the
time of discharge.
Thank you,
Sonja Jay RN
CDI Specialist
[facility]
Please use your independent medical judgment in providing your response.
--- NOTE | 2024-08-11 11:24 | PTCARENOTE ---
Med-sitter dc'd. Bed alarm in place for pt safety. Pt c/o 'butt' pain, 650mg PO Tylenol given, w/ little effect. Pt repositioned frequently to be turned off sacrum. Pt calls out frequently 'hello' and 'help'. Emotional support provided. Pt oriented
to self only, limited conversation w/ staff, cooperative w/ care. Discussed w/ Palliative and Dr Daniel.
--- NOTE | 2024-08-11 11:40 | W.PN.PAL2 ---
Today's Communication
-
Palliative Care Follow Up Visit. Patient seen in bed, complaining of back pain. Has sacral wound. Currently with medsitter, but agitation improving. Looking into SNF placement.
Recommended changing tylenol to 1000mg scheduled q8 hours to help improve pain and any pain related agitation. Discussed with attending.
Agitation medications managed by psychiatry.
Assessment / Plan
-
Assessment/Plan:
Agitation mangement per psychiatry, improving
Recommend increasing tylenol to 1000mg q8 h scheduled. Off load/turn to reduce pain/pressure to sacral wound.
patient unable to tolerate ibuprofen per chart review.
Awaiting placement
Reason for Admission
Illness Course/HPI
Viviana is an 83 year old F with PMH of Parkinson's disease, dementia, HTN, HLD who presented to the ED from [facility] after a fall. +head strike with nose laceration.
Goals of Care Discussion
-
Patient able to participate in discussion at time of visit: No
Pain & Symptom Assessment
Patient Symptoms
Patient Symptoms: Pain (patient unable to quantify, reports bad back pain)
Objective Data
-
Objective Data:
Vital Signs
Temp Pulse Resp BP Pulse Ox
97.6 F 63 16 102/54 94
08/11/24 08:47 08/11/24 08:47 08/11/24 08:47 08/11/24 08:47 08/11/24 08:47
Laboratory Results
08/10/24 16:51
08/10/24 20:36
Total Protein 6.4 g/dl (6.3-8.2) 08/06/24 07:22
Albumin 3.7 g/dl (3.5-5.0) 08/06/24 07:22
Urine Color Yellow 08/04/24 22:29
Urine Clarity Slightly cloudy (Clear) 08/04/24 22:29
Urine pH 5.0 (5.0-9.0) 08/04/24 22:29
Ur Specific [place] 1.025 (<1.030) 08/04/24 22:29
Urine Ketones Negative (Negative) 08/04/24 22:29
Urine Bilirubin Negative (Negative) 08/04/24 22:29
Palliative Performance Scale
Palliative Performance Scale:
PPS Level Ambulation Activity & Evidence of Disease Self Care Intake Conscious Level
100% Full Normal Activity & Work; Full Intake Full
No Evidence of Disease
90% Full Normal Activity & Work; Full Normal Full
Some Evidence of Disease
80% Full Normal Activity with Effort Full Normal or Full
Some Evidence of Disease Reduced
70% Reduced Unable Normal Job/Work Full Normal or Full
Significant Disease Reduced
60% Reduced Unable Hobby/Housework Occasional Normal or Full or Confusion
Significant Disease Assistance Reduced
50% Mainly Sit/Lie Unable to do Any Work Considerable Normal or Full or Confusion
Extensive Disease Assistance Req'd Reduced
40% Mainly in Bed Unable to do Most Activity Mainly Assistance Normal or Full or Drowsy;
Extensive Disease Reduced +/- Confusion
30% Totally Bed Unable to do Any Activity Total Care Normal or Full or Drowsy;
Bound Extensive Disease Reduced +/- Confusion
20% Totally Bed Bound Unable to do Any Activity Total Care Minimal to Full or Drowsy;
Extensive Disease Sips +/- Confusion
10% Totally Bed Bound Unable to do Any Activity Total Care Mouth Care Drowsy or Coma;
Extensive Disease Only +/- Confusion
0%
PPS Score Level:
Palliative Performance Score Response
Palliative Performance Score Response: 40%
Physical Exam
-
General: Well Developed and Well Nourished
HEENT: Moist Mucous Membranes
Neuro: Awake and Alert
Psych: Calm
[2024-08-11] MEDS: TYLENOL 1000 MG PO ×2 (12:06→15:18)
[2024-08-11] MEDS: ULTRAM 25 MG PO (13:14)
[2024-08-11 14:20] VITALS: BP 85/60; BP 97/55
--- NOTE | 2024-08-11 14:29 | W.PN.UPDATE ---
Update Note
Progress Note Update
Pt seen, sitting up in bed with tray table, eating lunch. Pt alert, calm, cooperative. No agitation evident this afternoon. No agitation noted on current psych med regimen, Seroquel increased to BID since admission.
Imp: Dementia with agitation, improved; reportedly dx'd with Lewy Body dz
Rec: continue current psychotropic medications
Psychiatry will sign off. Please reconsult for any new/immediate concerns
[2024-08-11 15:00] VITALS: BP 105/45
--- NOTE | 2024-08-11 15:00 | PTCARENOTE ---
notified that pt continues to yell out and c/o butt and back pain. Ultram 25mg PO added, however pt continues to yell out for help and c/o pain. Pt's behavior escalating, attempting to climb out of bed. added 2mg IV Haldol. EKG obtained. Will
monitor closely.
--- NOTE | 2024-08-11 16:09 | W.PN.HOSP.TC ---
Today's Communication/Plan
-
tramadol
dc ready - cm aware - pending placement
Assessment / Plan
Assessment / Plan
83yo F with PMHx of Parkinsons, parkinson dementia (poor mentation on the baseline), HLD, COPD, chronic pain brought from [facility] after she sustained the fall while staff was transferring her to . Found nasal laceration, CT head
and cervical spine without fractures. Found UTI and became hypoxic over her first 24h of hospitalization, hypoxia resolved with Abx and Ucx grew Ecoli sensitive to cephalosporins.
Since significant assistance needed as patient ambulatory status was declining for past months - family would like to place patient to rehab and eventually SNF. Medically stable for d/c - CM to work on location. Medically stable for d/c
A/P:
#Fall without LOC with chronic ambulatory dysfunction
CT head and cervical spine w/o acute findings
PT/OT
Fall precautions
Nasal laceration sutured - remove sutures around 08/14/24
#UTI
Ceftriaxone completed 5 days
No CANDICE - no concern for complicated infection at this time
#Acute hypoxic respiratory insufficiency - resolved
#COPD, unlikely exacerbation as no wheezing on exam
#b/l LE swelling 2/2 poor ambulatory capacity and resulted mild fluid overload with poor HTN control
proBNP low, chest XR without definite pneumonia or congestion, however patient with cough over past couple of days
Since allergic to Doxy and on high dose Lexapro - will avoid DOxy and Azithromycin. Cont Rocephin
US LE neg for DVT
Echo with EF 50-55% and moderate pulmonary HTN, Ethacrynic acid started (Sulfa allergy)
cont bronchodilators
COVID-19 neg
#Severe Dementia, most likely Parkinson
#Parkinson disease
#Chronic back pain
#HLD
cont home meds
Tylenol standing
Tramadol PRN
Psych consult: adjusting meds, following recommendations in the progress notes.
Neurology consult: started Sinemet
#Mild anemia
f/u with PCP upon d/c
DVT ppx hep
DNR/DNI as per paperwork
Anticipated Discharge: Within 24 hours
Subjective/Interval History
-
Date of Service: August 11, 2024
pain - started tramadol
Objective Data
-
Vital Signs:
Vital Signs
Temp Pulse Resp BP Pulse Ox
97.6 F 63 16 102/54 94
08/11/24 08:47 08/11/24 08:47 08/11/24 08:47 08/11/24 08:47 08/11/24 13:22
I&O
08/10/24 08/11/24 08/12/24
06:59 06:59 06:59
Intake Total 960 / 960 1200 / 1200
Balance 960 / 960 1200 / 1200
Review of Systems
-
History Source: Patient
All other systems: Not reviewed unless documented
Data Reviewed
-
Diagnostic Radiology: Image personally visualized and interpreted
CT Scan: Image personally visualized and interpreted and Report Reviewed by me
Labs: Labs Reviewed by me
[2024-08-11] MEDS: HALDOL 2 MG IV (16:36)
[2024-08-11] MEDS: ARICEPT 10 MG PO (22:23)
[2024-08-11] MEDS: DESYREL 50 MG PO (22:23)
[2024-08-11] MEDS: SENOKOT-S 2 TABLET PO (22:23)
[2024-08-11 23:12] VITALS: BP 115/54
[2024-08-12] MEDS: TYLENOL 1000 MG PO ×4 (00:03→23:00)
[2024-08-12] MEDS: ULTRAM 25 MG PO ×2 (01:19→12:16)
[2024-08-12 07:20] VITALS: BP 112/55
[2024-08-12 08:14] LABS: Blood Urea Nitrogen 23 mg/dl (7-17); Calcium 9.8 mg/dl (8.4-10.2); Carbon Dioxide 32 mmol/L (22-30); Chloride 97 mmol/L (98-107); Glucose 91 mg/dl (70-99); Potassium 4.3 mmol/L (3.5-5.1); Sodium 138 mmol/L (135-145); eGFR 55.55
--- NOTE | 2024-08-12 10:14 | CM ---
Addendum entered by Claudia Turner 08/12/24 12:46:
CM spoke with daughter, Sybil, [facility] able to accept, daughter scheduled for 4:00 p.m. tour. Per [facility] also able to offer bed, [facility] reviewing clinicals. Daughter inquiring about [facility], [facility]
placed call to facility, facility does not offer STR. Per [facility], can offer patient a bed and transition to semi private when room available. Daughter concerned with patient sharing a room with three other patients.
Plan; touring [facility] 4:00 p.m. for STR with transition to LTC
Original Note:
CM sent additional referrals to [facility], [facility], and [facility]. Per [facility], no LTC beds available. [facility] reports no beds available. VM left for [facility]. Per [facility], would need to see financial
application, no LTC beds and patient would be on waitlist. Updated referrals sent to SNF as patient no longer on medsitter as of yesterday. CM will continue to follow for all discharge planning needs. CM placed call to daughter, left VM.
Plan; SNF with transition to LTC once bed found.
[2024-08-12] MEDS: ZETIA 10 MG PO (10:31)
[2024-08-12] MEDS: ATIVAN 0.5 MG PO ×2 (10:31→20:21)
[2024-08-12] MEDS: SYMMETREL 100 MG PO (10:31)
[2024-08-12] MEDS: SEROQUEL 25 MG PO ×2 (10:31→20:21)
[2024-08-12] MEDS: PROTONIX 40 MG PO (10:32)
[2024-08-12] MEDS: NEURONTIN 300 MG PO ×3 (10:32→21:38)
[2024-08-12] MEDS: LEXAPRO 10 MG PO (10:32)
[2024-08-12] MEDS: EDECRIN 25 MG PO (10:32)
[2024-08-12] MEDS: HEPARIN 5000 UNITS SC ×2 (10:33→20:22)
[2024-08-12] MEDS: SANTYL OINTMENT 1 APPLIC TOPICAL (10:33)
[2024-08-12] MEDS: LIDOCAINE 4% PATCH 1 PATCH TOPICAL (10:33)
[2024-08-12] MEDS: SINEMET 10-100 1 TABLET PO ×3 (10:33→21:38)
[2024-08-12] MEDS: STERILE WATER FOR INJECTION IV (10:34)
--- NOTE | 2024-08-12 14:00 | W.PN.HOSP.TC ---
Today's Communication/Plan
-
dc ready - cm aware - pending placement
Assessment / Plan
Assessment / Plan
83yo F with PMHx of Parkinsons, parkinson dementia (poor mentation on the baseline), HLD, COPD, chronic pain [facility] after she sustained the fall while staff was transferring her to . Found nasal laceration, CT head
and cervical spine without fractures. Found UTI and became hypoxic over her first 24h of hospitalization, hypoxia resolved with Abx and Ucx grew Ecoli sensitive to cephalosporins.
Since significant assistance needed as patient ambulatory status was declining for past months - family would like to place patient to rehab and eventually SNF. Medically stable for d/c - CM to work on location. Medically stable for d/c
A/P:
#Fall without LOC with chronic ambulatory dysfunction
CT head and cervical spine w/o acute findings
PT/OT
Fall precautions
Nasal laceration sutured - remove sutures around 08/14/24
#UTI
Ceftriaxone completed 5 days
No CANDICE - no concern for complicated infection at this time
#Acute hypoxic respiratory insufficiency - resolved
#COPD, unlikely exacerbation as no wheezing on exam
#b/l LE swelling 2/2 poor ambulatory capacity and resulted mild fluid overload with poor HTN control
proBNP low, chest XR without definite pneumonia or congestion, however patient with cough over past couple of days
Since allergic to Doxy and on high dose Lexapro - will avoid DOxy and Azithromycin. Cont Rocephin
US LE neg for DVT
Echo with EF 50-55% and moderate pulmonary HTN, Ethacrynic acid started (Sulfa allergy)
cont bronchodilators
COVID-19 neg
#Severe Dementia, most likely Parkinson
#Parkinson disease
#Chronic back pain
#HLD
cont home meds
Tylenol standing
Tramadol PRN
Psych consult: adjusting meds, following recommendations in the progress notes.
Neurology consult: started Sinemet
#Mild anemia
f/u with PCP upon d/c
DVT ppx hep
DNR/DNI as per paperwork
Anticipated Discharge: Within 24 hours
Subjective/Interval History
-
Date of Service: August 12, 2024
No events overnight
Objective Data
-
Labs:
Laboratory Results
08/12/24
06:55
Sodium 138
Potassium 4.3
Chloride 97 L
Carbon Dioxide 32 H
BUN 23 H
Creatinine 1.0
Glucose 91
Calcium 9.8
Vital Signs:
Vital Signs
Temp Pulse Resp BP Pulse Ox
97.8 F 57 18 112/55 98
08/11/24 23:12 08/12/24 10:32 08/12/24 07:20 08/12/24 10:32 08/12/24 07:20
I&O
08/11/24 08/12/24 08/13/24
06:59 06:59 06:59
Intake Total 1200 / 1200 840 / 840
Balance 1200 / 1200 840 / 840
Review of Systems
-
History Source: Patient
All other systems: Not reviewed unless documented
Physical Exam
-
General: No Apparent Distress
HEENT: Normocephalic
GI: Soft, Nontender and Nondistended
Psych: Agitated and Apparent Dementia
Data Reviewed
-
Diagnostic Radiology: Image personally visualized and interpreted
CT Scan: Image personally visualized and interpreted and Report Reviewed by me
Labs: Labs Reviewed by me
[2024-08-12 15:38] VITALS: BP 90/39
[2024-08-12 16:02] VITALS: BP 90/41
[2024-08-12] MEDS: ARICEPT 10 MG PO (21:38)
[2024-08-12] MEDS: DESYREL 50 MG PO (21:45)
[2024-08-12] MEDS: SENOKOT-S 2 TABLET PO (21:46)
[2024-08-12 23:34] VITALS: BP 103/53
[2024-08-13 07:15] VITALS: BP 131/65
[2024-08-13 08:47] LABS: Hematocrit 39.9 % (37.0-47.0); Hemoglobin 12.9 g/dL (12.0-16.0); Mean Corp Hgb Conc. 32.3 g/dL (33.0-37.0); Mean Corpuscular Hgb 28.5 pg (27.0-31.0); Mean Corpuscular Volume 88.1 fL (81.0-99.0); Mean Platelet Volume 10.1 fL (7.4-10.4); Platelet Count 217 10^3/uL (130-400); Red Blood Cell Count 4.53 10^6/uL (4.20-5.40); Red Cell Dist. Width 13.8 % (11.5-14.5); White Blood Cell Count 5.1 10^3/uL (4.8-10.8)
[2024-08-13 09:16] LABS: Blood Urea Nitrogen 25 mg/dl (7-17); Calcium 9.6 mg/dl (8.4-10.2); Carbon Dioxide 32 mmol/L (22-30); Chloride 98 mmol/L (98-107); Glucose 94 mg/dl (70-99); Potassium 4.4 mmol/L (3.5-5.1); Sodium 140 mmol/L (135-145); eGFR 55.55
--- NOTE | 2024-08-13 10:08 | WOUNDNOTE ---
ROSALVA RN NOTE: Followed up today, nurse Xavi assisted and PCT/nursing students. Patient being washed up and new Purwick being applied, incontinent of urine. Sacral/gluteal cleft ulcer suspect stage 3 or deeper. Wound larger as expected with Santyl
use, can see some pink but mostly slough at base. Periwound intact, Santyl, adaptic,2x2 gauze and silicone foam applied. Recommend continue with Santyl dressing daily and offloading. Currently on air overlay with adequate inflation, turning schedule
enforced. Instructed PCT and nursing students importance of offloading and turning for PI healing. Heels intact and adhesive foams changed, pillow in use under calves. Nurse Tori reports good appetite. Air chair cushion in . Will follow as needed
and recommend air mattress at [place], will update discharge instructions.
[2024-08-13] MEDS: NEURONTIN 300 MG PO ×3 (10:22→21:18)
[2024-08-13] MEDS: SINEMET 10-100 1 TABLET PO ×3 (10:22→21:18)
[2024-08-13] MEDS: EDECRIN 25 MG PO (10:22)
[2024-08-13] MEDS: SYMMETREL 100 MG PO (10:22)
[2024-08-13] MEDS: ZETIA 10 MG PO (10:22)
[2024-08-13] MEDS: PROTONIX 40 MG PO (10:22)
[2024-08-13] MEDS: TYLENOL 1000 MG PO ×3 (10:22→23:21)
[2024-08-13] MEDS: ATIVAN 0.5 MG PO ×2 (10:23→20:21)
[2024-08-13] MEDS: SEROQUEL 25 MG PO ×3 (10:23→22:07)
[2024-08-13] MEDS: HEPARIN 5000 UNITS SC ×2 (10:23→20:21)
[2024-08-13] MEDS: LEXAPRO 10 MG PO (10:24)
[2024-08-13] MEDS: LIDOCAINE 4% PATCH 1 PATCH TOPICAL (10:27)
[2024-08-13] MEDS: SANTYL OINTMENT 1 APPLIC TOPICAL (10:27)
--- NOTE | 2024-08-13 10:33 | CM ---
Addendum entered by Claudia Turner 08/13/24 14:37:
CM spoke with patients daughter via telephone, daughter inquiring if we are 'kicking her out' regarding patient. CM reports patient is not being kicked out. Daughter confirmed she is touring [facility] and [facility] again, with her , daughter
requesting additional referral to [facility], referral placed in [facility]. CM reports [facility] and [facility] unable to accept, awaiting to hear from [facility], [facility], and [facility]. Patients daughter reports she feels extreme
pressure from the Hospital to discharge patient, reports several times that 'no one cares' about patient, the Hospital is a business, etc. Daughter reports she works for [employer] and will ensure [facility] is aware of this situation. CM offered support and
understanding to daughter. CM shared that family can always transfer patient from one facility to another.
Original Note:
CM spoke with patients daughter, Sybil, regarding discharge planning and SNF referrals. Sybil reports she toured [facility] and [facility], is going back to tour facilities again with her . D[facility], [facility], and [facility]. Per [facility], unable to accept. Call placed to [place] to check bed availability, VM left. Updates sent to [facility] for additional
review. CM discussed patient is medically stable for discharge and family will need to make decision regarding facility as there are accepting facilities at this time, discussed right to appeal if needed. Daughter aware, reports she would like to
hear from additional facilities that referrals were just sent on before making a decision, reports she will have a decision for CM tomorrow. CM will update Hospitalist, will continue to follow for all discharge planning needs.
Plan; SNF pending family decision.
[2024-08-13] MEDS: STERILE WATER FOR INJECTION IV (10:36)
[2024-08-13] MEDS: ULTRAM 25 MG PO ×2 (12:24→19:22)
--- NOTE | 2024-08-13 12:30 | PTCARENOTE ---
Received phone call from patient's daughter, who states she feels her mother is unsafe for discharge and feels 'pressure from the hospital' for her mother to leave. Daughter also stating she feels her mother is being 'kicked out'. Efforts made to
calm and reassure daughter regarding discharge process in general, as well as her mother being medically cleared for discharge. Daughter unable to state what she feels is unsafe about discharge at this time, and verbalizes several times that she
loved 2 of the facilities she toured. Daughter stating that she will re-tour the 2 facilities that she loved today at 4pm with her and son. Throughout conversation therapeutic communication was used to reassure daughter regarding discharge
planning and process. Concerns relayed to business case analyst. Patient resting in bed at this time.
--- NOTE | 2024-08-13 13:13 | W.PN.HOSP.TC ---
Addendum entered and electronically signed by Edil Daniel MD 08/13/24 18:15:
Sacral/gluteal cleft pressure ulcer suspect stage 3 or deeper.
Original Note:
Today's Communication/Plan
-
dc ready - cm aware - pending placement
Assessment / Plan
Assessment / Plan
83yo F with PMHx of Parkinsons, parkinson dementia (poor mentation on the baseline), HLD, COPD, chronic pain brought from [facility] after she sustained the fall while staff was transferring her to . Found nasal laceration, CT head
and cervical spine without fractures. Found UTI and became hypoxic over her first 24h of hospitalization, hypoxia resolved with Abx and Ucx grew Ecoli sensitive to cephalosporins.
Since significant assistance needed as patient ambulatory status was declining for past months - family would like to place patient to rehab and eventually SNF. Medically stable for d/c - CM to work on location. Medically stable for d/c
A/P:
#Fall without LOC with chronic ambulatory dysfunction
CT head and cervical spine w/o acute findings
PT/OT
Fall precautions
Nasal laceration sutured - remove sutures around 08/14/24
#UTI
Ceftriaxone completed 5 days
No CANDICE - no concern for complicated infection at this time
#Acute hypoxic respiratory insufficiency - resolved
#COPD, unlikely exacerbation as no wheezing on exam
#b/l LE swelling 2/2 poor ambulatory capacity and resulted mild fluid overload with poor HTN control
proBNP low, chest XR without definite pneumonia or congestion, however patient with cough over past couple of days
Since allergic to Doxy and on high dose Lexapro - will avoid DOxy and Azithromycin. Cont Rocephin
US LE neg for DVT
Echo with EF 50-55% and moderate pulmonary HTN, Ethacrynic acid started (Sulfa allergy)
cont bronchodilators
COVID-19 neg
#Severe Dementia, most likely Parkinson
#Parkinson disease
#Chronic back pain
#HLD
cont home meds
Tylenol standing
Tramadol PRN
Psych consult: adjusting meds, following recommendations in the progress notes.
Neurology consult: started Sinemet
#Mild anemia
f/u with PCP upon d/c
DVT ppx hep
DNR/DNI as per paperwork
Anticipated Discharge: Within 24 hours
Subjective/Interval History
-
Date of Service: August 13, 2024
No acute events overnight
Objective Data
-
Labs:
Laboratory Results
08/13/24
08:19
WBC 5.1
Hgb 12.9
Hct 39.9
Plt Count 217
Sodium 140
Potassium 4.4
Chloride 98
Carbon Dioxide 32 H
BUN 25 H
Creatinine 1.0
Glucose 94
Calcium 9.6
Vital Signs:
Vital Signs
Temp Pulse Resp BP Pulse Ox
97.3 F 62 16 131/65 94
08/13/24 07:15 08/13/24 07:15 08/13/24 07:15 08/13/24 07:15 08/13/24 07:15
I&O
08/12/24 08/13/24 08/14/24
06:59 06:59 06:59
Intake Total 840 / 840 300 / 300
Output Total 150 / 150
Balance 840 / 840 150 / 150
Review of Systems
-
History Source: Patient
All other systems: Not reviewed unless documented
Physical Exam
-
General: No Apparent Distress
HEENT: Normocephalic
GI: Soft, Nontender and Nondistended
Psych: Agitated and Apparent Dementia
Data Reviewed
-
Diagnostic Radiology: Image personally visualized and interpreted
CT Scan: Image personally visualized and interpreted and Report Reviewed by me
Labs: Labs Reviewed by me
--- NOTE | 2024-08-13 13:37 | PN.CDI ---
CDI
- -
CDI:
Physician Documentation Request
Admit Date: 08/05/24 08:21
Dear Doctor María,
Please review the following and provide your response in the progress notes.
Clinical Indicators:
Pt admitted with Lewy Body dementia and UTI
Documented per Nursing notes on 08/04 , ' Sacrum pressure related ..pressure injury stage 3 .... Silcone border as treatment ...'
WOCN note 08/13, ' Sacral/gluteal cleft ulcer suspect stage 3 or deeper. Wound larger as expected with Santyl use, can see some pink but mostly slough at base...Santyl, adaptic,2x2 gauze and silicone foam applied. ....'
Physician documentation of the type and location of wounds is required for compliant documentation. Based on the above clinical findings and your assessment, please provide the following in your progress note:
1. Location of the ulcer/wound, including laterality.
2. Type (etiology) of ulcer/wound:
- Pressure (decubitus) ulcer
- Non-pressure ulcer
- Other
Use of terms such as suspected, likely, concern for, or probable (associated with a specific diagnosis that is being evaluated, monitored, or treated as if it exists) are acceptable and can be coded in the inpatient setting, when documented at the
time of discharge.
Thank you,
Sonja Jay RN
CDI Specialist
[place] [facility]
Please use your independent medical judgment in providing your response.
*Source: National Pressure Ulcer Advisory Panel (NPUAP)
[2024-08-13 14:56] VITALS: BP 94/43; PULSE 59; O2SAT 96
[2024-08-13 15:35] VITALS: BP 103/55
[2024-08-13] MEDS: ARICEPT 10 MG PO (21:16)
[2024-08-13] MEDS: DESYREL 50 MG PO (21:17)
[2024-08-13] MEDS: SENOKOT-S 2 TABLET PO (21:18)
[2024-08-13 22:54] VITALS: BP 113/51
[2024-08-14 08:07] VITALS: BP 95/85
[2024-08-14] MEDS: EDECRIN 25 MG PO (09:12)
[2024-08-14] MEDS: LIDOCAINE 4% PATCH 1 PATCH TOPICAL (09:13)
[2024-08-14] MEDS: NEURONTIN 300 MG PO (09:13)
[2024-08-14] MEDS: SEROQUEL 25 MG PO (09:14)
[2024-08-14] MEDS: ATIVAN 0.5 MG PO (09:14)
[2024-08-14] MEDS: LEXAPRO 10 MG PO (09:15)
[2024-08-14] MEDS: TYLENOL 1000 MG PO (09:15)
[2024-08-14] MEDS: SINEMET 10-100 1 TABLET PO (09:17)
[2024-08-14] MEDS: SYMMETREL 100 MG PO (09:17)
[2024-08-14] MEDS: STERILE WATER FOR INJECTION IV (09:18)
[2024-08-14] MEDS: HEPARIN 5000 UNITS SC (09:19)
[2024-08-14] MEDS: PROTONIX 40 MG PO (09:21)
[2024-08-14] MEDS: ZETIA 10 MG PO (09:28)
[2024-08-14] MEDS: SANTYL OINTMENT 1 APPLIC TOPICAL (09:36)
--- NOTE | 2024-08-14 11:17 | CM ---
CM spoke with Archana from [facility], confirmed ability to accept patient for discharge today, updated clinicals sent in [facility]. CM spoke with patients daughter, Sybil Shafer, relayed transport time, obtained email to send copy of
IMM ([email or web address]). Daughter expressed extreme unhappiness with patients hospital stay, relayed concerns to Risk Management. CM will continue to follow for all discharge planning needs.
Plan; [facility], 1:30 p.m. ambulance transport.
[facility]:
Report: [phone]
--- NOTE | 2024-08-14 11:52 | W.PN.HOSP.TC ---
Addendum entered and electronically signed by Edil Daniel MD 08/16/24 16:36:
[id number]
Original Note:
Today's Communication/Plan
-
f/u psych, neuro, pcp outpatient
suture removal in 1-2 days
Assessment / Plan
Assessment / Plan
83yo F with PMHx of Parkinsons, parkinson dementia (poor mentation on the baseline), HLD, COPD, chronic pain brought from [facility] after she sustained the fall while staff was transferring her to . Found nasal laceration, CT head
and cervical spine without fractures. Found UTI and became hypoxic over her first 24h of hospitalization, hypoxia resolved with Abx and Ucx grew Ecoli sensitive to cephalosporins.
Since significant assistance needed as patient ambulatory status was declining for past months - family would like to place patient to rehab and eventually SNF. Medically stable for d/c - CM to work on location. Medically stable for d/c
A/P:
#Fall without LOC with chronic ambulatory dysfunction
CT head and cervical spine w/o acute findings
PT/OT
Fall precautions
Nasal laceration sutured - remove sutures in 1-2 days
#UTI
Ceftriaxone completed 5 days
No CANDICE - no concern for complicated infection at this time
#Acute hypoxic respiratory insufficiency - resolved
#COPD, unlikely exacerbation as no wheezing on exam
#b/l LE swelling 2/2 poor ambulatory capacity and resulted mild fluid overload with poor HTN control
proBNP low, chest XR without definite pneumonia or congestion, however patient with cough over past couple of days
Since allergic to Doxy and on high dose Lexapro - will avoid DOxy and Azithromycin. Cont Rocephin
US LE neg for DVT
Echo with EF 50-55% and moderate pulmonary HTN, Ethacrynic acid started (Sulfa allergy)
cont bronchodilators
COVID-19 neg
#Severe Dementia, most likely Parkinson
#Parkinson disease
#Chronic back pain
#HLD
cont home meds
Tylenol standing
Tramadol PRN
Psych consult: adjusting meds, following recommendations in the progress notes. -F?u psych/neuro outpatient
Neurology consult: started Sinemet
#Mild anemia
f/u with PCP upon d/c
DVT ppx hep
DNR/DNI as per paperwork
More than 30 minutes spent in discharge including
Final examination of the patient
Summarizing hospital stay
Instructions for continuing care to all relevant caregivers
Preparation of discharge records, prescriptions, and referral forms
Total time spent (35 in minutes):
Anticipated Discharge: Today
Subjective/Interval History
-
Date of Service: August 14, 2024
No acute events
Objective Data
-
Vital Signs:
Vital Signs
Temp Pulse Resp BP Pulse Ox
98.2 F 62 17 95/85 97
08/14/24 08:07 08/14/24 08:07 08/14/24 08:07 08/14/24 08:07 08/14/24 08:07
I&O
08/13/24 08/14/24 08/15/24
06:59 06:59 06:59
Intake Total 300 / 300 1020 / 1020
Output Total 150 / 150 450 / 450
Balance 150 / 150 570 / 570
Review of Systems
-
History Source: Patient
All other systems: Not reviewed unless documented
Physical Exam
-
General: No Apparent Distress
HEENT: Normocephalic
GI: Soft, Nontender and Nondistended
Psych: Agitated and Apparent Dementia
Data Reviewed
-
Diagnostic Radiology: Image personally visualized and interpreted
CT Scan: Image personally visualized and interpreted and Report Reviewed by me
Labs: Labs Reviewed by me
--- NOTE | 2024-08-14 12:08 | W.DS.TRANS ---
DC Summary - [employer]
-
Discharge Instructions:
Discharge Diagnosis/Procedures #Acute hypoxic respiratory insufficiency
#UTI
Diet Low Cholesterol,Low Fat
Activity As tolerated
Driving Restrictions No driving
Other Services OT,PT
Instructions:
Stand-Alone Forms:
Changes to Home Medications: Yes
Discharge Medications:
DC Medications w/original date entered in [employer]
albuterol sulfate 2.5 mg/3 mL (0.083 %) solution for nebulization 2.5 mg inhalation R QID 08/04/24
albuterol sulfate 90 mcg/actuation aerosol inhaler 1 puff inhalation R BID 08/04/24
cholecalciferol (vitamin D3) 25 mcg (1,000 unit) tablet 25 mcg PO DAILY 08/04/24
donepezil 5 mg tablet 10 mg PO HS 08/04/24
ezetimibe 10 mg tablet 10 mg PO DAILY 08/04/24
gabapentin 300 mg capsule 300 mg PO TID 08/04/24
haqzxppv-cwv-evkwusqok-C-hyaluronic 500 mg-300 mg-400 mg-10 mg tablet 1 tab PO DAILY 08/04/24
sennosides 8.6 mg-docusate sodium 50 mg tablet (Stimulant Laxative Plus) 2 tab PO HS 08/04/24
acetaminophen 325 mg tablet 650 mg (2 x 325 mg) PO Q4HPRN PRN mild pain/MCDANIELS/temp> 100.4F #60 tabs 08/10/24
amantadine HCl 100 mg capsule 100 mg PO DAILY #30 caps 08/10/24
carbidopa 10 mg-levodopa 100 mg tablet 1 tab PO BID #60 tabs 08/10/24
escitalopram oxalate 10 mg tablet 10 mg PO DAILY #30 tabs 08/10/24
ethacrynic acid 25 mg tablet 25 mg PO DAILY #30 tabs 08/10/24
lorazepam 0.5 mg tablet 0.5 mg PO Q12H #6 tabs 08/10/24
pantoprazole 40 mg tablet,delayed release 40 mg PO DAILY #30 tabs 08/10/24
polyethylene glycol 3350 17 gram oral powder packet (HealthyLax) 17 g PO DAILYPRN PRN constipation #30 ea 08/10/24
quetiapine 25 mg tablet 25 mg PO BID #60 tabs 08/10/24
trazodone 50 mg tablet 50 mg PO HS #30 tabs 08/10/24
carbidopa 10 mg-levodopa 100 mg tablet 1 tab PO TID #0 tabs 08/14/24
quetiapine 25 mg tablet 25 mg PO Q6HPRN PRN agitation #0 tabs 08/14/24
Home Medication Changes
quetiapine 25 mg tablet 25 mg PO BID #60 tabs 08/10/24
trazodone 50 mg tablet 50 mg PO HS #30 tabs 08/10/24
carbidopa 10 mg-levodopa 100 mg tablet 1 tab PO TID #0 tabs 08/14/24
quetiapine 25 mg tablet 25 mg PO Q6HPRN PRN agitation #0 tabs 08/14/24
Pending Results: No
--- NOTE | 2024-08-14 13:15 | WOUNDNOTE ---
WOC RN note: Reviewed chart and called patient's daughter Sybil to discuss patient's sacral pressure injury requested. Sybil appreciated the information. Shay texted DANELLE Turner who will notify SNF that patient needs an air mattress.
== END 2024-08-14 13:49 | DRG 56 ==
LOC: 4 WEST ACU 08:21
PROVIDERS: Internal Medicine; ADMITTING PHYSICIAN Internal Medicine; ATTENDING PHYSICIAN Internal Medicine; CONSULT PHYSICIAN Psychiatry & Neurology Neurology; EMERGENCY PHYSICIAN Emergency Medicine; FAMILY PHYSICIAN Nurse Practitioner Family; OTHER PHYSICIAN Nurse Practitioner Gerontology; OTHER PHYSICIAN Psychiatry & Neurology Psychiatry
PROC: 09QKXZZ Repair Nasal Mucosa and Soft Tissue, External Approach (ICD-10-PCS; 2024-08-05)
DX: G31.83 Neurocognitive disorder with Lewy bodies (principal); G93.41 Metabolic encephalopathy; L89.153 Pressure ulcer of sacral region, stage 3; F02.811 Dementia in other diseases classified elsewhere, unspecified severity, with agitation; N39.0 Urinary tract infection, site not specified; G20.A1 Parkinson's disease without dyskinesia, without mention of fluctuations; R06.89 Other abnormalities of breathing; R09.02 Hypoxemia; E78.00 Pure hypercholesterolemia, unspecified; Z66 Do not resuscitate; S01.21XA Laceration without foreign body of nose, initial encounter; Z11.52 Encounter for screening for COVID-19; W19.XXXA Unspecified fall, initial encounter
CPT/HCPCS: 12013; 70450; 71045; 72125; 80048; 80053; 81003; 81015; 83605; 83735; 83880; 84443; 85025; 85027; 87077; 87086; 87186; 87811; 90471; 90715; 93005; 93306; 93970; 94640; 97530; 99285